=== PATIENT | female | born 1990 | race Caucasian/White ===

== ENCOUNTER 2016-09-07 08:27 | Inpatient (IN) | payer BC, OTHER ==
[2016-09-07] VITALS (7 sets, daily range): BP systolic 110–131; BP diastolic 64–85; PULSE 82–97; RESP 16–20; TEMP 97.4–98.6; O2SAT 96–99
[~2016-09-07] VITALS: Ht 177.8 cm; Wt 87.4 kg
[~2016-09-07 08:27] MED LIST: LOESTRIN; NOVOLOGP2
[2016-09-07 08:47] LABS: I-STAT POTASSIUM 3.9 MMOL/L (3.5-4.9); I-STAT SODIUM 139 MMOL/L (138-146)
[2016-09-07 08:52] LABS: AUTOMATED NEUTROPHIL # 5.7 TH/MM3 (1.8-7.7); BASOPHIL # 0.1 TH/MM3 (0-0.2); EOSINOPHIL # 0.1 TH/MM3 (0-0.4); EOSINOPHIL % 0.7 % (0.0-4.0); HEMATOCRIT 36.5 % (35.0-46.0); HEMO FLAGS DIFF FINAL; LYMPHOCYTE # 2.5 TH/MM3 (1.0-4.8); MEAN CORPUSCULAR HEMOGLOBIN 29.4 PG (27.0-34.0); MEAN CORPUSCULAR HGB CONC 34.6 % (32.0-36.0); MONO % 5.1 % (0.0-8.0); NEUT % 65.2 % (16.0-70.0); PLATELET COUNT 327 TH/MM3 (150-450); RED CELL DISTRIBUTION WIDTH 13.3 % (11.6-17.2); WHITE BLOOD COUNT 8.8 TH/MM3 (4.0-11.0)
--- NOTE | 2016-09-07 08:53 | RADRPT ---
EXAM DATE/TIME: 09/07/2016 08:26 [facility] COMPARISON: No previous studies available for comparison. INDICATIONS : Trauma Alert MEDICAL HISTORY : Unobtainable SURGICAL HISTORY : Unobtainable ENCOUNTER: Initial ACUITY: 1 day PAIN SCORE: Non-responsive. LOCATION: Bilateral pelvis FINDINGS: A single frontal view of the pelvis demonstrates no evidence of fracture. The bony pelvic ring is in tact. Bony mineralization is normal. The soft tissues are intact. CONCLUSION: No acute fracture. Fortunato Toney MD on September 07, 2016 at 8:48 Board Certified Radiologist. This report was verified electronically.
--- NOTE | 2016-09-07 08:56 | RADRPT ---
EXAM DATE/TIME: 09/07/2016 08:46 [facility] COMPARISON: No previous studies available for comparison. INDICATIONS : Trauma alert. Fall. Altered mental status. RADIATION DOSE: 32.59 CTDIvol (mGy) MEDICAL HISTORY : Non-responsive. SURGICAL HISTORY : Non-responsive. ENCOUNTER: Initial ACUITY: 1 day PAIN SCALE: Non-responsive LOCATION: cranial TECHNIQUE: Multiple contiguous axial images were obtained of the head. Using automated exposure control and adj ustment of the mA and/or kV according to patient size, radiation dose was kept as low as reasonably a chievable to obtain optimal diagnostic quality images. FINDINGS: CEREBRUM: The ventricles are normal for age. No evidence of midline shift, mass lesion, hemorrhage or acute in farction. No extra-axial fluid collections are seen. POSTERIOR FOSSA: The cerebellum and brainstem are intact. The 4th ventricle is midline. The cerebellopontine angle i s unremarkable. EXTRACRANIAL: The visualized portion of the orbits is intact. SKULL: The calvaria is intact. No evidence of skull fracture. CONCLUSION: No acute intracranial disease. Fortunato Toney MD on September 07, 2016 at 8:54 Board Certified Radiologist. This report was verified electronically.
--- NOTE | 2016-09-07 08:56 | RADRPT ---
EXAM DATE/TIME: 09/07/2016 08:26 [facility] COMPARISON: No previous studies available for comparison. INDICATIONS : Trauma Alert MEDICAL HISTORY : Unobtainable SURGICAL HISTORY : Unobtainable ENCOUNTER: Initial ACUITY: 1 day PAIN SCORE: Non-responsive. LOCATION: Bilateral chest FINDINGS: Patient on backboard. A single view of the chest demonstrates the lungs to be symmetrically aerated w ithout evidence of mass, infiltrate or effusion. The cardiomediastinal contours are unremarkable. O sseous structures are intact. CONCLUSION: No acute disease. Fortunato Toney MD on September 07, 2016 at 8:52 Board Certified Radiologist. This report was verified electronically.
[2016-09-07] MEDS ORDERED: levETIRAcetam 1000 MG INJ 100 ML IV ONE (09:00)
[2016-09-07 09:02] LABS: APTT (PATIENT) 25.8 SEC (24.3-30.1); INTERNATIONAL NORMALIZED RATIO 0.9 RATIO; PROTHROMBIN TIME - PATIENT 10.1 SEC (9.8-11.6)
[2016-09-07] MEDS ORDERED: LACTATED RINGER'S 1000 ML INJ 1,000 ML IV SCH (09:05)
--- NOTE | 2016-09-07 09:07 | RADRPT ---
EXAM DATE/TIME: 09/07/2016 08:46 [facility] COMPARISON: No previous studies available for comparison. INDICATIONS : Trauma alert. Fall. Altered mental status. RADIATION DOSE: 21.08 CTDIvol (mGy) MEDICAL HISTORY : Non-responsive. SURGICAL HISTORY : Non-responsive. ENCOUNTER: Initial ACUITY: 1 day PAIN SCALE: Non-responsive LOCATION: neck TECHNIQUE: Volumetric scanning of the cervical spine was performed. Multiplanar reconstructions in the sagittal, coronal and oblique axial planes were performed. Using automated exposure control and adjustment o f the mA and/or kV according to patient size, radiation dose was kept as low as reasonably achievable to obtain optimal diagnostic quality images. FINDINGS: VERTEBRAE: Normal vertebral body height. No fracture. This isn't maintained. ALIGNMENT: No evidence of subluxation. Facets are well aligned. Craniocervical junction intact. C2-C3: The bony spinal canal is normal in size. No evidence of disc bulge or herniation. The neural forami na are bilaterally patent. C3-C4: The bony spinal canal is normal in size. No evidence of disc bulge or herniation. The neural forami na are bilaterally patent. C4-C5: The bony spinal canal is normal in size. No evidence of disc bulge or herniation. The neural forami na are bilaterally patent. C5-C6: The bony spinal canal is normal in size. No evidence of disc bulge or herniation. The neural forami na are bilaterally patent. C6-C7: The bony spinal canal is normal in size. No evidence of disc bulge or herniation. The neural forami na are bilaterally patent. C7-T1: The bony spinal canal is normal in size. No evidence of disc bulge or herniation. The neural forami na are bilaterally patent. CONCLUSION: 1. No fracture or subluxation. Fortunato Toney MD on September 07, 2016 at 9:04 Board Certified Radiologist. This report was verified electronically.
[2016-09-07 09:08] LABS: BETA HCG QUANT LESS THAN 1 MIU/ML (0-5)
[2016-09-07] MEDS ORDERED: METOCLOPRAMIDE HCL 10 MG/2 ML VIAL IV PUSH ONE (09:15)
[2016-09-07] MEDS ORDERED: SODIUM CHLORIDE 0.9% FLUSH 5 ML FLUSH IVF PRN (09:15)
[2016-09-07] MEDS ORDERED: MISCELLANEOUS NURSING INFORMATION XX SCH (09:15)
[2016-09-07] MEDS ORDERED: CHLORHEXIDINE GLUCONATE 2 % 1 PACK (2 CLOTHS) TOP PRN (09:15)
--- NOTE | 2016-09-07 09:24 | HHI.HP ---
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 There is reported seizure activity at the scene and she was brought in as a trauma alert. Patient arrived alert and oriented, visibly shaken but in no real acute distress. She had no external signs of traumatic injury. He is a diabetic and said she forgot to take her insulin this morning, and she has no history of seizure activity in the past. In the trauma bay during the workup she said ever everything is getting dark and she became unresponsive. She maintained her airway and woke up after approximately a minute. Review of Systems Constitutional: DENIES: Diaphoretic episodes, Fatigue, Fever, Weight gain, Weight loss, Chills, Dizziness, Change in appetite, Night Sweats Endocrine: DENIES: Abnorml menstrual pattern, Heat/cold intolerance, Polydipsia , Polyuria, Polyphagia Eyes: DENIES: Blurred vision, Diplopia, Eye inflammation, Eye pain, Vision loss , Photosensitivity, Double Vision Ears, nose, mouth, throat: DENIES: Tinnitus, Hearing loss, Vertigo, Nasal discharge, Oral lesions, Throat pain, Hoarseness, Ear Pain, Running Nose, Epistaxis, Sinus Pain, Toothache, Odynophagia Respiratory: DENIES: Apneas, Cough, Snoring, Wheezing, Hemoptysis, Sputum production, Shortness of breath Cardiovascular: DENIES: Chest pain, Palpitations, Syncope, Dyspnea on Exertion , PND, Lower Extremity Edema, Orthopnea, Claudication Gastrointestinal: DENIES: Abdominal pain, Black stools, Bloody stools, Constipation, Diarrhea, Nausea, Vomiting, Difficulty Swallowing, Anorexia Genitourinary: DENIES: Abnormal vaginal bleeding, Dysmenorrhea, Dyspareunia, Sexual dysfunction, Urinary frequency, Urinary incontinence, Urgency, Hematuria , Dysuria, Nocturia, Vaginal discharge Musculoskeletal: DENIES: Joint pain, Muscle aches, Stiffness, Joint Swelling, Back pain, Neck pain Integumentary: DENIES: Abnormal pigmentation, Pruritus, Rash, Nail changes, Breast masses, Breast skin changes, Nipple discharge Hematologic/lymphatic: DENIES: Bruising, Lymphadenopathy Immunologic/allergic: DENIES: Eczema, Urticaria Neurologic: DENIES: Abnormal gait, Headache, Localized weakness, Paresthesias, Seizures, Speech Problems, Tremor, Poor Balance Psychiatric: DENIES: Anxiety, Confusion, Mood changes, Depression, Hallucinations, Agitation, Suicidal Ideation, Homicidal Ideation, Delusions Past Family Social History Allergies: Coded Allergies: Phenergan (Verified Allergy, Unknown, 09/07/16) Past Medical History Type 1 diabetes Cardiac dysrhythmias Past Surgical History Laparoscopic cholecystectomy [place] teeth removal Reported Medications Novolin insulin, sliding scale Family History Review and not relevant Social History Denies alcohol tobacco or drug use Physical Exam Physical Exam General: A 27-year-old female lying in no acute distress, visibly upset however Head: Atraumatic normocephalic Eyes: Pupils equal round reactive to light extraocular movements intact sclerae nonicteric conjunctiva was pink ENT: There is no facial tenderness or crepitus to palpation Neck: Soft, trachea is midline there is no tenderness to palpation Cardiovascular: Regular rate and rhythm Respiratory: Clear to auscultation bilaterally Chest: No tenderness or crepitus to palpation Abdomen: Soft nontender nondistended mildly obese Pelvis: Stable, nontender to palpation femoral pulses palpable bilaterally Back: No tenderness or step-off to palpation Extremities: No clubbing cyanosis or edema dorsalis pedis pulses palpable bilaterally Skin: Warm dry, no obvious signs of injury, herpetic rash present Psychiatric: Mood and affect are appropriate Neurologic: Cranial nerves II through XII appear grossly intact, there is no focal neurologic deficit Laboratory Laboratory Tests Test 09/07/16 08:30 White Blood Count 8.8 Red Blood Count 4.30 Hemoglobin 12.6 Bedside Hemoglobin 12.2 Hematocrit 36.5 Bedside Hematocrit 36.0 Mean Corpuscular Volume 85.0 Mean Corpuscular Hemoglobin 29.4 Mean Corpuscular Hemoglobin 34.6 Concent Red Cell Distribution Width 13.3 Platelet Count 327 Mean Platelet Volume 7.8 Neutrophils (%) (Auto) 65.2 Lymphocytes (%) (Auto) 28.0 Monocytes (%) (Auto) 5.1 Eosinophils (%) (Auto) 0.7 Basophils (%) (Auto) 1.0 Neutrophils # (Auto) 5.7 Lymphocytes # (Auto) 2.5 Monocytes # (Auto) 0.5 Eosinophils # (Auto) 0.1 Basophils # (Auto) 0.1 CBC Comment DIFF FINAL Differential Comment Prothrombin Time 10.1 Prothromb Time International 0.9 Ratio Activated Partial 25.8 Thromboplast Time Bedside Sodium 139 Bedside Potassium 3.9 Bedside Chloride 99 Bedside Blood Urea Nitrogen 7 Bedside Creatinine 0.5 Bedside Glucose 359 Human Chorionic Gonadotropin, LESS THAN 1 Quant Ethyl Alcohol Level LESS THAN 3 Blood Type O POSITIVE Result Diagram: 09/07/16829 Imaging Last Impressions Pelvis X-Ray 09/07/16836 Signed Impressions: Service Date/Time: Wednesday, September 07, 2016 08:26 - CONCLUSION: No acute fracture. Fortunato Toney MD Head CT 09/07/16836 Signed Impressions: Service Date/Time: Wednesday, September 07, 2016 08:46 - CONCLUSION: No acute intracranial disease. Fortunato Toney MD Chest X-Ray 09/07/16836 Signed Impressions: Service Date/Time: Wednesday, September 07, 2016 08:26 - CONCLUSION: No acute disease. Fortunato Toney MD Assessment and Plan Assessment and Plan Seizure activity following a blow to the head, following a trip and fall. -Admit to trauma service for serial neurologic exams and continuous hemodynamic monitoring -Loaded with Keppra 1000 mg IV followed by 500 mg by mouth twice a day -Neurology consult Type 1 diabetes -Nothing by mouth for now, 1800-calorie ADA diet when appropriate -Will place on insulin sliding scale with before meals and at bedtime coverage Code Status Full code Discussed Condition With Patient, ED physician, trauma team Leonel Coreas MD Sep 07, 2016 09:24
[2016-09-07] MEDS ORDERED: GLUCAGON 1 MG/ML VIAL OTHER PRN (09:30)
[2016-09-07] MEDS ORDERED: DEXTROSE 50% IN WATER 50 ML VIAL(D50) IV PUSH PRN ×2 (09:30→11:30)
--- NOTE | 2016-09-07 09:37 | PD ---
HPI Chief Complaint: Trauma (Alert) Time Seen by Provider: 08:28 Travel History International Travel<30 days: No Contact w/Intl Traveler<30days: No Traveled to known affect area: No History of Present Illness HPI Patient is a 26-year-old female who was brought to the emergency room by EMS after a trauma alert was initiated on her in the field. GCS was 11 in the field. Blood pressure was 152/78, respiratory rate was 14 and pulse ox was 100 % on room air. 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 Reports that patient tripped and fell over a stump on the ground and hit her head on the ground. Reports that after she fell, she had loss of consciousness and what appeared to be 2 episodes of petit mal seizures. Reports that these episodes lasted for a few seconds at a time. Patient with no history of seizures in the past. Reports that on scene, patient's GCS was 11. Reports that she was alert and oriented to person and place but was confused and was having problems with word findings. Patient is a type I diabetic on a sliding scale insulin - patient reports that she did not take her insulin today as she forgot. Which sugar in the emergency room was 359 in ER. Patient is awake and alert 3 in the emergency room. Patient with only complaints of headache and problems with word finding. Patient does remember events prior to tripping and falling. Patient reports that she is a type I diabetic, reports that she forgot to take her medications today. Reports that she tripped and fell and hit her head and doesn't remember anything else after this. Patient reports that she does have herpetic lesions in her left buttocks. Patient with no chest pain or shortness of breath. Patient with no abdominal pain. Patient with no pain with range of motion to her extremities. [facility] Past Medical History Diabetes: Yes Past Surgical History Cholecystectomy: Yes Other Surgery: Yes ([place] tooth surgery) Family History Family History: Negative Social History Alcohol Use: No Tobacco Use: No Substance Use: No Allergies-Medications (Allergen,Severity, Reaction): Coded Allergies: Phenergan (Verified Allergy, Unknown, 09/07/16) Review of Systems General / Constitutional: No: Fever Eyes: No: Visual changes HENT: No: Headaches Cardiovascular: No: Chest Pain or Discomfort Respiratory: No: Shortness of Breath Gastrointestinal: No: Abdominal Pain Genitourinary: No: Dysuria Musculoskeletal: No: Pain Skin: No Rash Neurologic: Positive: Headache, Change in Mentation, No: Weakness Psychiatric: No: Depression Endocrine: No: Polydipsia Hematologic/Lymphatic: No: Easy Bruising Physical Exam Narrative GENERAL: moderate distress SKIN: Warm and dry. HEAD: Atraumatic. Normocephalic. EYES: Pupils equal and round. No scleral icterus. No injection or drainage. pupils are 2 and reactive ENT: No nasal bleeding or discharge. Mucous membranes pink and moist. NECK: Trachea midline. No JVD. Patient in C-spine precautions CARDIOVASCULAR: Regular rate and rhythm. No murmur appreciated. RESPIRATORY: No accessory muscle use. Clear to auscultation. Breath sounds equal bilaterally. GASTROINTESTINAL: Abdomen soft, non-tender, nondistended. Hepatic and splenic margins not palpable. MUSCULOSKELETAL: No obvious deformities. No clubbing. No cyanosis. No edema. Patient with no midline tenderness NEUROLOGICAL: Awake and alert. No obvious cranial nerve deficits. Motor grossly within normal limits. Normal speech. PSYCHIATRIC: Anxious on exam Data Data Last Documented VS Vital Signs Date Time Temp Pulse Resp B/P Pulse Ox O2 Delivery O2 Flow Rate FiO2 09/07/16 09:05 99 Nasal Cannula 2 09/07/16 09:05 97.4 97 16 127/73 Orders I-Stat Profile (09/07/16 08:37) I-Stat Creatinine (09/07/16 08:37) Complete Blood Count With Diff (09/07/16 08:37) Prothrombin Time / Inr (Pt) (09/07/16 08:37) Act Partial Throm Time (Ptt) (09/07/16 08:37) Type And Screen (09/07/16 08:37) Alcohol (Ethanol) (09/07/16 08:37) Beta Hcg (Quant/Titer) (09/07/16 08:37) Urinalysis - C+S If Indicated (09/07/16 08:37) Drug Screen, Random Urine (09/07/16 08:37) Chest, Single Ap (09/07/16 08:37) Pelvis, Ap Only (Routine) (09/07/16 08:37) Ct Brain W/O Iv Contrast(Rout) (09/07/16 08:37) Ct Cerv Spine W/O Contrast (09/07/16 08:37) Iv Access Insert/Monitor (09/07/16 08:37) Ecg Monitoring (09/07/16 08:37) Oximetry (09/07/16 08:37) Oxygen Administration (09/07/16 08:37) Electrocardiogram (09/07/16 ) Levetiracetam 1000 Mg Inj (Keppra 1000 M (09/07/16 09:00) Metoclopramide Inj (Reglan Inj) (09/07/16 09:15) Levetiracetam (Keppra) (09/07/16 21:00) Admit To Inpatient (09/07/16 ) Vital Signs (Adult) URIEL.QSHIFT (09/07/16 09:05) Intake + Output URIEL.Q8H (09/07/16 09:05) Neuro Checks URIEL.Q1H (09/07/16 09:05) Activity Bed Rest (09/07/16 09:05) Diet Npo (09/07/16 Breakfast) Scd / El / Foot Pump URIEL.QSHIFT (09/07/16 09:05) ^ Instruction (09/07/16 09:05) Lactated Ringer's 1000 Ml Inj (Lr 1000 M (09/07/16 09:05) Sodium Chloride 0.9% Flush (Ns Flush) (09/07/16 09:15) Acetamin-Hydrocod 325-5 Mg ([place] 5-325 (09/07/16 09:15) Acetaminophen (Tylenol) (09/07/16 10:00) ^ Initiate Protocol (09/07/16 09:05) ^ Instruction (09/07/16 09:05) [facility] [place] (09/07/16 09:15) Chlorhexidine 2% Cloth (Chlorhexidine 2% (09/08/16 04:00) Chlorhexidine 2% Cloth (Chlorhexidine 2% (09/07/16 09:15) [facility] Pcr Surveillance (09/07/16 09:05) Inpatient Certification (09/07/16 ) Intake + Output URIEL.Q8H (09/07/16 09:05) ^ Instruction (09/07/16 09:05) Consult Neurology (09/07/16 ) Remove Cervical Collar (09/07/16 09:12) Labs Laboratory Tests Test 09/07/16 08:30 White Blood Count 8.8 TH/MM3 Red Blood Count 4.30 MIL/MM3 Hemoglobin 12.6 GM/DL Bedside Hemoglobin 12.2 G/DL Hematocrit 36.5 % Bedside Hematocrit 36.0 % Mean Corpuscular Volume 85.0 FL Mean Corpuscular Hemoglobin 29.4 PG Mean Corpuscular Hemoglobin 34.6 % Concent Red Cell Distribution Width 13.3 % Platelet Count 327 TH/MM3 Mean Platelet Volume 7.8 FL Neutrophils (%) (Auto) 65.2 % Lymphocytes (%) (Auto) 28.0 % Monocytes (%) (Auto) 5.1 % Eosinophils (%) (Auto) 0.7 % Basophils (%) (Auto) 1.0 % Neutrophils # (Auto) 5.7 TH/MM3 Lymphocytes # (Auto) 2.5 TH/MM3 Monocytes # (Auto) 0.5 TH/MM3 Eosinophils # (Auto) 0.1 TH/MM3 Basophils # (Auto) 0.1 TH/MM3 CBC Comment DIFF FINAL Differential Comment Prothrombin Time 10.1 SEC Prothromb Time International 0.9 RATIO Ratio Activated Partial 25.8 SEC Thromboplast Time Bedside Sodium 139 MMOL/L Bedside Potassium 3.9 MMOL/L Bedside Chloride 99 MMOL/L Bedside Blood Urea Nitrogen 7 MG/DL Bedside Creatinine 0.5 MG/DL Bedside Glucose 359 MG/DL Human Chorionic Gonadotropin, LESS THAN 1 Quant MIU/ML Ethyl Alcohol Level LESS THAN 3 MG/DL Blood Type O POSITIVE [facility] Medical Screen Exam Complete: Yes Emergency Medical Condition: Yes Interpretation(s) EKG at 0910: Normal sinus rhythm at 94 bpm, QT/QTc 351/403, no acute ST or T- wave changes CBC & BMP Diagram 09/07/16 08:30 Last Impressions Pelvis X-Ray 09/07/16836 Signed Impressions: Service Date/Time: Wednesday, September 07, 2016 08:26 - CONCLUSION: No acute fracture. Fortunato Toney MD Head CT 09/07/16836 Signed Impressions: Service Date/Time: Wednesday, September 07, 2016 08:46 - CONCLUSION: No acute intracranial disease. Fortunato Toney MD Chest X-Ray 09/07/16836 Signed Impressions: Service Date/Time: Wednesday, September 07, 2016 08:26 - CONCLUSION: No acute disease. Fortunato Toney MD Cervical Spine CT 09/07/16 0837 Signed Impressions: Service Date/Time: Wednesday, September 07, 2016 08:46 - CONCLUSION: 1. No fracture or subluxation. Fortunato Toney MD Differential Diagnosis Intracranial hemorrhage, seizure, electrolyte abnormality, arrhythmia, C-spine fracture, pneumothorax Narrative Course Patient is a 26-year-old female with history of type 1 diabetes on an insulin sliding scale who presents to emergency room by EMS as a trauma alert. Patient' s GCS was 11 on scene. Trauma alert was called overhead. Upon arrival to emergency room, patient was alert and oriented 3. Trauma protocol initiated. Dr Coreas at beside during trauma alert and workup of patient Please see trauma records. Patient presents to emergency room alert and oriented 3. Patient had good breath sounds on evaluation. Patient has good pulses on evaluation was moving all extremities. There was no obvious bruising on her body. I-STAT labs were obtained. X-ray of the chest and as well as the pelvis were ordered and obtained which showed no acute fractures. Patient was removed from long board, patient with no midline tenderness on evaluation. During her evaluation, patient became unresponsive for a few seconds and then was alert and oriented 3. Keppra load was ordered for her as concern for seizure activity. After primary and secondary trauma evaluation, patient was stable to go for CAT scans of her head and neck. Patient with no obvious bleed or no obvious fracture to her C-spine. Patient will be admitted to the surgical ICU for close monitoring. Critical Care Narrative Aggregate critical care time was 45 minutes. Time to perform other separately billable procedures was not included in the critical care time. My time did not include minutes spent treating any other patients simultaneously or on activities that did not directly contribute to the patient's treatment. The services I provided to this patient were to treat and/or prevent clinically significant deterioration that could result in: , decompensation, deterioration I provided critical care services requiring my management, as noted below: Chart data review, documentation time, medication orders and management, vital sign assessments/reviewing monitor data, ordering and reviewing lab tests, ordering and interpreting/reviewing x-rays and diagnostic studies, care of the patient and discussion of the patient with the admitting physicians. Trauma Alert - Level One Trauma Alert Level One: Full trauma team activate Time Surgeon Summoned: 08:11 Time Anesthesiologist Summoned: 08:23 Diagnosis Diagnosis: Primary Impression: Trauma Additional Impression: Seizure after head injury Admitting Physician Requests: Admit Azeb Mayberry DO Sep 07, 2016 09:37
[2016-09-07] MEDS ORDERED: MORPHINE SULFATE 4 MG/ML INJ IV PUSH ONE (10:00)
[2016-09-07] MEDS ORDERED: ACETAMINOPHEN 325 MG TAB PO PRN (10:00)
[2016-09-07 10:52] LABS: BACTERIA, URINE RARE /hpf; BLOOD, URINE TRACE (NEG); GLUCOSE,URINE 1000 mg/dL (NEG); KETONE, URINE 80 mg/dL (NEG); MUCUS URINE FEW /lpf (OCC); NITRITE,URINE NEG (NEG); PH, URINE 6.5 (5.0-8.5); SQUAMOUS EPITHELIAL CELL URINE 2 /hpf (0-5); URINE COLOR LIGHT-YELLOW (YELLW/STRAW)
[2016-09-07 10:56] LABS: AMPHETAMINE, URINE NEG (NEG); BARBITURATES, URINE NEG (NEG); COCAINE, URINE NEG (NEG); COMMENT (UR) CULT NOT INDICATED; CULTURE IF INDICATED CULT NOT INDICATED
--- NOTE | 2016-09-07 11:28 | PD.CONS ---
HPI Service Critical Care Medicine Consult Requested By Trauma, Dr. 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 Reported seizure activity at the scene and she was brought in as a trauma alert. Patient arrived alert and oriented, no external signs of traumatic injury. Last dose of insulin was at 4 am per patient, and she has no history of seizure activity in the past. In the trauma bay the patient stated everything is getting dark and she became unresponsive. She woke up after approximately after a minute, and was protecting airway CT of the head and C-spine was negative. Initial blood sugar was 359. Patient was admitted to ICU and critical care was consulted for medical management of hyperglycemia and type 1 diabetes, also for seizures following closed head injury. Patient states that she never had seizures before. Also she usually gets palpitations with SVT, did not feel chest pain or palpitation prior to this episode Review of Systems ROS Limitations: Other (per HPI) Past Family Social History Allergies: Coded Allergies: Phenergan (Verified Allergy, Unknown, 09/07/16) Past Medical History Type 1 diabetes on insulin (now on Carb count with SSI) SVT Past Surgical History Appendectomy [place] tooth removal Reported Medications Metoprolol Insulin sliding scale Active Ordered Medications Reviewed Family History Significant history of coronary artery disease Social History No tobacco use and no drug use Occasional social alcohol use Physical Exam Vital Signs Vital Signs Date Time Temp Pulse Resp B/P Pulse Ox O2 Delivery O2 Flow Rate FiO2 09/07/16 09:05 99 Nasal Cannula 2 09/07/16 09:05 97.4 97 16 127/73 99 Nasal Cannula 2 Physical Exam General: A 26-year-old female lying in no acute distress, Head: Atraumatic normocephalic, mild posterior scalp tenderness over the occiput Eyes: Pupils equal round reactive to light extraocular movements intact sclerae ENT: There is no facial tenderness Neck: Soft, trachea is midline there is no tenderness to palpation Cardiovascular: Regular rate and rhythm, no murmurs. Bedside Echo Nl EF, no evidence of MVP, or atrial clot on limited exam Respiratory: Clear to auscultation bilaterally Chest: No tenderness or crepitus to palpation Abdomen: Soft nontender nondistended. No organomegaly Extremities: No clubbing cyanosis or edema dorsalis pedis pulses palpable bilaterally Neurologic: Cranial nerves II through XII appear grossly intact, there is no focal neurologic deficit Laboratory Laboratory Tests Test 09/07/16 09/07/16 08:30 10:15 White Blood Count 8.8 Red Blood Count 4.30 Hemoglobin 12.6 Bedside Hemoglobin 12.2 Hematocrit 36.5 Bedside Hematocrit 36.0 Mean Corpuscular Volume 85.0 Mean Corpuscular Hemoglobin 29.4 Mean Corpuscular Hemoglobin 34.6 Concent Red Cell Distribution Width 13.3 Platelet Count 327 Mean Platelet Volume 7.8 Neutrophils (%) (Auto) 65.2 Lymphocytes (%) (Auto) 28.0 Monocytes (%) (Auto) 5.1 Eosinophils (%) (Auto) 0.7 Basophils (%) (Auto) 1.0 Neutrophils # (Auto) 5.7 Lymphocytes # (Auto) 2.5 Monocytes # (Auto) 0.5 Eosinophils # (Auto) 0.1 Basophils # (Auto) 0.1 CBC Comment DIFF FINAL Differential Comment Prothrombin Time 10.1 Prothromb Time International 0.9 Ratio Activated Partial 25.8 Thromboplast Time Bedside Sodium 139 Bedside Potassium 3.9 Bedside Chloride 99 Bedside Blood Urea Nitrogen 7 Bedside Creatinine 0.5 Bedside Glucose 359 Human Chorionic Gonadotropin, LESS THAN 1 Quant Ethyl Alcohol Level LESS THAN 3 Blood Type O POSITIVE Antibody Screen NEGATIVE Urine Color LIGHT-YELLOW Urine Turbidity CLEAR Urine pH 6.5 Urine Specific [place] 1.026 Urine Protein NEG Urine Glucose (UA) 1000 Urine Ketones 80 Urine Occult Blood TRACE Urine Nitrite NEG Urine Bilirubin NEG Urine Urobilinogen LESS THAN 2.0 Urine Leukocyte Esterase LARGE Urine RBC 1 Urine WBC 6 Urine Squamous Epithelial 2 Cells Urine Bacteria RARE Urine Mucus FEW Urine Yeast (Budding) RARE Microscopic Urinalysis Comment CULT NOT INDICATED Urine Opiates Screen NEG Urine Barbiturates Screen NEG Urine Amphetamines Screen NEG Urine Benzodiazepines Screen POS Urine Cocaine Screen NEG Urine Cannabinoids Screen NEG Result Diagram: 09/07/[address] head cervical spine negative Assessment and Plan Assessment and Plan ASSESSMENT: Mechanical fall with Closed head injury without bleed Syncope at trauma bay Seizure Hyperglycemia Type 1 diabetes History of SVT PLAN: NEURO: Closed head injury Seizure Syncope -CT of the head and C-spine negative -Loaded with Keppra get stat EEG, neurology consult -IV Ativan when necessary for seizures RESP: -Nasal cannula oxygen, DuoNeb if needed CV: History of SVT -Normal saline IV fluids 150 ml per hour, repeat 2d echo. -This incident does not seem to be cardiac related -Resume beta blockers -Bedside Echo Nl EF, no evidence of MVP, or atrial clot on limited exam GI: -1800 ADA diet : -Monitor renal function closely. ID: -Monitor for infection HEME: -Monitor CBC, CMP, coags ENDO: Hyperglycemia Type 1 diabetes -Check CMP, no evidence of DKA at this time -Critical care insulin infusion algorithm 2 -Transition to sliding scale once sugars controlled -Electrolyte replacement protocol PROPH: -Bilateral lower extremity SCDs. Avoid chemical prophylaxis due to acute trauma. Protonix 40 mg by mouth daily LINES: -Utilize peripheral IVs, central line if needed CC time 40 min Code Status Full Benji Theodore MD Sep 07, 2016 11:28
[2016-09-07] MEDS ORDERED: MISC INFORMATION XX ONE (11:30)
[2016-09-07] MEDS ORDERED: LORazepam 2 MG/ML VIAL IV PUSH PRN (11:30)
[2016-09-07] MEDS: SODIUM CHLOR 0.9% 1000 ML INJ 1,000 ML IV SCH ×2 (11:45→18:49)
[2016-09-07] MEDS ORDERED: SODIUM PHOSPHATE INJ 30 MMOL in SODIUM CHLOR 0.9% 250 ML INJ 240 ML IV PRN (12:00)
[2016-09-07] MEDS ORDERED: POTASSIUM CHLOR 40 MEQ PREMIX 100 ML IV PRN ×2 (12:00)
[2016-09-07] MEDS ORDERED: POTASSIUM CL 40 MEQ/30 ML LIQ UDC PO/TUBE PRN ×2 (12:00)
[2016-09-07] MEDS ORDERED: POTASSIUM CHLOR 20 MEQ PREMIX 100 ML IV PRN ×2 (12:00)
[2016-09-07] MEDS ORDERED: MAGNESIUM OXIDE 400 MG TAB PO PRN (12:00)
[2016-09-07] MEDS ORDERED: POTASSIUM PHOSPHATE INJ 30 MMOL in SODIUM CHLOR 0.9% 250 ML INJ 250 ML IV PRN (12:00)
[2016-09-07] MEDS ORDERED: MAGNESIUM SULFATE INJ 2 GM in SODIUM CHLORIDE 0.9% INJ 96 ML IV PRN (12:00)
[2016-09-07] MEDS ORDERED: POTASSIUM PHOSPHATE MONOBASIC 500 MG TAB PO PRN (12:00)
[2016-09-07] MEDS ORDERED: POTASSIUM PHOSPHATE MONOBASIC 500 MG TAB PO/TUBE PRN (12:00)
[2016-09-07] MEDS ORDERED: MAGNESIUM SULFATE INJ 4 GM in SODIUM CHLORIDE 0.9% INJ 92 ML IV PRN (12:00)
[2016-09-07 12:19] LABS: ALKALINE PHOSPHATASE 120 U/L (45-117); ALT (GPT) 14 U/L (10-53); ANION GAP 11 MEQ/L (5-15); AST (GOT) 13 U/L (15-37); BICARBONATE 25.9 MEQ/L (21.0-32.0); BLOOD UREA NITROGEN 8 MG/DL (7-18); CHLORIDE 103 MEQ/L (98-107); GLOMERULAR FILTRATION RATE 75 ML/MIN (>89); POTASSIUM 3.9 MEQ/L (3.5-5.1); SODIUM (NA) 140 MEQ/L (136-145); TOTAL BILIRUBIN ADULT 0.2 MG/DL (0.2-1.0)
[2016-09-07] MEDS ORDERED: INSULIN REGULAR (IV INFUSION) 100 UNITS in SODIUM CHLORIDE 0.9% INJ 99 ML IV SCH (13:00)
--- NOTE | 2016-09-07 13:43 | MB ---
cc: AGUSTO MCKINLEY MD DATE OF CONSULTATION: 09/07/2016 REASON FOR CONSULTATION: Trip and fall / seizures. 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 There was reported seizure activity at the scene and she was brought in to the [facility] as trauma alert. The patient was witnessed to have, "a petit mal seizure". The patient when arrived was alert and oriented and she had no external signs of any trauma. The patient states that the last thing she recalls is when she tripped and fell and "walking through the yard when I tripped and fell". She denies any tongue biting, foaming, but according to some witnesses, there was mild foam. She denies any history of loss of bowel or bladder control. The patient is diabetic and insulin-dependent diagnosed when she was 14 and she forgot to take her insulin this morning. She denies any history of seizure activity in the past or any family member with seizure. However, the patient clearly mentioned that she was diagnosed with neurocardiogenic syncope by a loan servicing specialist when she had episodes of supraventricular tachycardia and where her heart rate could be as high as 190, she would feel dizzy, lightheaded, was pale, racing heart, profuse sweating and then she may zone out or pass out as she states but she never has a witnessed convulsion or seizure. Head CT scan in the emergency department without contrast did not reveal any acute intracranial disease. Labs revealed an elevated glucose of 359, positive urine for ketones. The patient is on insulin for diabetes and metoprolol for her supraventricular tachycardia. REVIEW OF SYSTEMS: A twelve-point review of systems was negative except as stated in the history of present illness. PAST MEDICAL HISTORY: 1. Diabetes. 2. Cardiac arrhythmias / supraventricular tachycardia. PAST SURGICAL HISTORY: 1. Laparoscopic cholecystectomy. 2. [place] teeth removal. MEDICATIONS: Sliding scale insulin. FAMILY HISTORY: Noncontributory. SOCIAL HISTORY: Denies alcohol, tobacco or drug abuse. ALLERGIES: PHENERGAN. PHYSICAL EXAMINATION: GENERAL: The patient is awake, alert, good historian, not in acute distress. HEAD, EYES, EARS, NOSE, THROAT: Normocephalic and atraumatic. Intact vision and intact hearing. CARDIOVASCULAR: Regular rate and rhythm. RESPIRATORY: Clear to auscultation. No wheezes. EXTREMITIES: No cyanosis, clubbing or edema. NEUROLOGICAL EXAMINATION: Awake, alert and oriented to time, person and place. Intact speech. Intact memory. Cranial nerves II through XII are grossly intact. Motor system 5/5 bilateral and symmetrical. Normal tone. No abnormal movement. Sensation is intact bilateral and symmetrical. Reflexes are 2+ bilateral and symmetrical. Plantars are bilaterally downgoing. Cerebellar functions [id number] and sitl-[id number] are bilaterally normal. PSYCHIATRIC: Mood and affect are appropriate. No suicidal ideation or visual hallucinations. LABORATORY DATA: WBCs 8.8, hemoglobin 12.6, platelet count 327,000. INR 0.9. Sodium 139, potassium 3.9, chloride 99, BUN 7, creatinine 0.5, glucose 359. DIAGNOSTIC IMAGING: -Head CT scan without contrast with no acute intracranial disease. - Pelvic x-rays show no acute fracture. - Chest x-ray shows no acute disease. DIAGNOSTIC IMPRESSION: 1. Seizure-like activity witnessed by paramedics. 2. History of neurocardiogenic syncope / supraventricular tachycardia. 3. Insulin-dependent diabetes. 4. Possible etiology is an episode of syncope with convulsions. PLAN: 1. Neuro checks q. 4 hourly. 2. MRI brain. 3. No need for AEDs' at this time. 4. Seizure precautions. 5. Fall precautions. 6. Physical therapy and occupational therapy recommendations are appreciated. 7. EEG. 8. DVT prophylaxis. Thank you for the opportunity to participate in the care of your patient. MD ANAYELI Bianchi/JOSEPH /11:08 AM /1:32 PM MIKEL
[2016-09-07] MEDS: INSULIN ASPART SUPPLEMENTAL SCALE SQ SCH ×2 (16:00→20:51)
[2016-09-07] MEDS ORDERED: ATROPINE SULFATE 1 MG/10 ML SYRINGE ONE (16:02)
[2016-09-07] MEDS ORDERED: EPINEPHrine HCL (1:10,000) 1 MG/10 ML SYRINGE ONE (16:02)
[2016-09-07] MEDS: ACETAMINOPHEN/HYDROcodone 325 MG/5 MG TAB PO PRN (17:07)
--- NOTE | 2016-09-07 18:05 | RADRPT ---
EXAM DATE/TIME: 09/07/2016 16:12 [facility] COMPARISON: No previous studies available for comparison. INDICATIONS : Seizures. MEDICAL HISTORY : Diabetes mellitus type 1. Cardo neurogenic syncope SURGICAL HISTORY : Cholecystectomy. ENCOUNTER: Initial ACUITY: 1 day PAIN SCORE: 0/10 LOCATION: cranial TECHNIQUE: Multiplanar, multisequence MRI of the brain was performed without contrast. FINDINGS: CEREBRUM: The ventricles are normal for age. No evidence of midline shift, mass lesion, hemorrhage or acute in farction. No extraaxial fluid collections are seen. The pituitary gland and suprasellar cistern are normal in configuration. WHITE MATTER: No significant signal abnormalities are seen in the white matter. POSTERIOR FOSSA: The cerebellum and brainstem are intact. The 4th ventricle is midline. The cerebellopontine angle is unremarkable. The cerebellar tonsils are normal in position. DIFFUSION IMAGING: No focal areas of restricted diffusion are seen. No evidence of acute infarction. EXTRACRANIAL: The visualized portions of the orbits and paranasal sinuses are unremarkable. CONCLUSION: Normal examination for a patient of this age. Rashad Mello MD on September 07, 2016 at 18:01 Board Certified Radiologist. This report was verified electronically.
--- NOTE | 2016-09-07 20:36 | RADRPT ---
EXAM DATE/TIME: 09/07/2016 20:14 [facility] COMPARISON: No previous studies available for comparison. INDICATIONS : Stroke alert; left sided weakness. RADIATION DOSE: 49.62 CTDIvol (mGy) This report was called by Dr. Mello to Dr. Zheng at 8: 34 PM MEDICAL HISTORY : None SURGICAL HISTORY : None. ENCOUNTER: Initial ACUITY: 1 day PAIN SCALE: 0/10 LOCATION: cranial TECHNIQUE: Multiple contiguous axial images were obtained of the head. Using automated exposure control and adj ustment of the mA and/or kV according to patient size, radiation dose was kept as low as reasonably a chievable to obtain optimal diagnostic quality images. FINDINGS: CEREBRUM: The ventricles are normal for age. No evidence of midline shift, mass lesion, hemorrhage or acute in farction. No extra-axial fluid collections are seen. POSTERIOR FOSSA: The cerebellum and brainstem are intact. The 4th ventricle is midline. The cerebellopontine angle i s unremarkable. EXTRACRANIAL: The visualized portion of the orbits is intact. SKULL: The calvaria is intact. No evidence of skull fracture. CONCLUSION: Normal examination. Rashad Mello MD on September 07, 2016 at 20:32 Board Certified Radiologist. This report was verified electronically.
[2016-09-07] MEDS: levETIRAcetam 500 MG TAB PO SCH (20:51)
[2016-09-07] MEDS ORDERED: INSULIN DETEMIR 100 UNITS/ML VIAL SQ SCH (21:00)
[2016-09-07 21:06] LABS: AUTOMATED NEUTROPHIL # 3.3 TH/MM3 (1.8-7.7); BASOPHIL # 0.1 TH/MM3 (0-0.2); BASOPHIL % 1.1 % (0.0-2.0); EOSINOPHIL # 0.1 TH/MM3 (0-0.4); EOSINOPHIL % 1.2 % (0.0-4.0); HEMATOCRIT 36.3 % (35.0-46.0); HEMO FLAGS DIFF FINAL; LYMPH % 42.7 % (9.0-44.0); LYMPHOCYTE # 2.9 TH/MM3 (1.0-4.8); MEAN CELL VOLUME 86.8 FL (80.0-100.0); MEAN CORPUSCULAR HEMOGLOBIN 29.2 PG (27.0-34.0); MEAN CORPUSCULAR HGB CONC 33.7 % (32.0-36.0); MONO % 5.4 % (0.0-8.0); NEUT % 49.6 % (16.0-70.0); PLATELET COUNT 306 TH/MM3 (150-450); RED BLOOD COUNT 4.19 MIL/MM3 (4.00-5.30); RED CELL DISTRIBUTION WIDTH 13.3 % (11.6-17.2); WHITE BLOOD COUNT 6.7 TH/MM3 (4.0-11.0)
[2016-09-07 21:15] LABS: APTT (PATIENT) 28.3 SEC (24.3-30.1); INTERNATIONAL NORMALIZED RATIO 0.9 RATIO; PROTHROMBIN TIME - PATIENT 10.4 SEC (9.8-11.6)
[2016-09-07 21:52] LABS: ALKALINE PHOSPHATASE 116 U/L (45-117); ALT (GPT) 17 U/L (10-53); ANION GAP 13 MEQ/L (5-15); AST (GOT) 17 U/L (15-37); BLOOD UREA NITROGEN 9 MG/DL (7-18); CHLORIDE 99 MEQ/L (98-107); GLOMERULAR FILTRATION RATE 103 ML/MIN (>89); POTASSIUM 5.3 MEQ/L (3.5-5.1); SODIUM (NA) 134 MEQ/L (136-145); TOTAL BILIRUBIN ADULT 0.5 MG/DL (0.2-1.0)
--- NOTE | 2016-09-07 23:48 | HHI.PR ---
Review/Management Diagnosis Seizure like activity Stroke alert, not iv tPA candidate due to rapid resolution of symptoms and NIHSS of Zero Insulin dependant diabetes mellitus Plan Neurochecks Q4h Aspirin 81 mg daily EEG pending MRA head CUS telemetry Cardiac ECHO Seizure precautions DVT prophylaxis Diagnosis/Plan: Subjective Subjective Comments Called for a stroke alert Left facial droop, left sided UE&LE drift NIHSS of [address] scan with no acute intracranial abnormality Reassessment of NIHHS after patient was back from CT scan was Zero Full resolution of symptoms Hence, not a candidate for IV tPA Active Medications Current Medications Medications (Trade) Dose Ordered Sig/Jami Route Start Time Stop Time Status Last Admin (Keppra) 500 mg Q12HR PO 09/07/16 21:00 09/07/16 20:51 (NS Flush) 2 ml UNSCH PRN IVF 09/07/16 09:15 ([place] 5-325 Mg) 1 tab Q4H PRN PO 09/07/16 09:15 09/07/16 17:07 (Tylenol) 650 mg Q6H PRN PO 09/07/16 10:00 Miscellaneous Information 1 [id number] XX 09/07/16 09:15 (Chlorhexidine 2% Cloth) 3 pack Taper DAILY@04 TOP 09/08/16 04:00 09/04/17 03:59 (Chlorhexidine 2% Cloth) 3 pack UNSCH PRN TOP 09/07/16 09:15 Lorazepam 1 mg 1 mg Q2H PRN IV PUSH 09/07/16 11:30 Sodium Chloride 1,000 ml @ 75 mls/hr [id number] IV 09/07/16 11:45 09/07/16 18:49 Potassium Chloride 100 ml @ 50 mls/hr Q2H PRN IV 09/07/16 12:00 (KCl 20 Meq Premix Inj) 100 ml @ 50 mls/hr Q2H PRN IV 09/07/16 12:00 Potassium Chloride 40 meq 40 meq UNSCH PRN PO/TUBE 09/07/16 12:00 Potassium Chloride 100 ml @ 25 mls/hr UNSCH PRN IV 09/07/16 12:00 Potassium Chloride 100 ml @ 50 mls/hr Q2H PRN IV 09/07/16 12:00 (Magnesium Sulfate Inj/NS Inj) 100 ml @ 50 mls/hr UNSCH PRN IV 09/07/16 12:00 Magnesium Oxide 800 mg 800 mg UNSCH PRN PO 09/07/16 12:00 (Magnesium Sulfate Inj/NS Inj) 100 ml @ 50 mls/hr UNSCH PRN IV 09/07/16 12:00 Potassium Phosphate 2000 mg 2,000 mg Q4H PRN PO 09/07/16 12:00 (Sodium Phosphate Inj/NS 250 ml Inj) 250 ml @ 42 mls/hr UNSCH PRN IV 09/07/16 12:00 (KCl 40 Meq/30 ml Liq) 40 meq UNSCH PRN PO/TUBE 09/07/16 12:00 Potassium Phosphate 2000 mg 2,000 mg UNSCH PRN PO/TUBE 09/07/16 12:00 (Potassium Phosphate Inj/NS 250 ml Inj) 260 ml @ 42 mls/hr UNSCH PRN IV 09/07/16 12:00 (Levemir Inj) 10 units HS SQ 09/07/16 21:00 09/07/16 20:52 Allergies Allergies Coded Allergies Phenergan (Verified Allergy, Unknown, 09/07/16) Exam I&O / VS Vital Signs Date Time Temp Pulse Resp B/P Pulse Ox O2 Delivery O2 Flow Rate FiO2 09/07/16 18:00 82 09/07/16 16:00 82 09/07/16 16:00 98.6 82 17 110/64 97 09/07/16 14:00 95 09/07/16 12:30 100 Room Air 09/07/16 09:05 99 Nasal Cannula 2 09/07/16 09:05 97.4 97 16 127/73 99 Nasal Cannula 2 09/07/16 08:27 98 4.00 Objective Radiology Results Last 72 hours Impressions Pelvis X-Ray [id number]/[id number] Signed Impressions: Service Date/Time: Wednesday, September 07, 2016 08:26 - CONCLUSION: No acute fracture. Fortunato Toney MD Head CT [id number] Signed Impressions: Service Date/Time: Wednesday, September 07, 2016 08:46 - CONCLUSION: No acute intracranial disease. Fortunato Toney MD Chest X-Ray [id number]/07/16836 Signed Impressions: Service Date/Time: Wednesday, September 07, 2016 08:26 - CONCLUSION: No acute disease. Fortunato Toney MD Cervical Spine CT 09/07/16 0837 Signed Impressions: Service Date/Time: Wednesday, September 07, 2016 08:46 - CONCLUSION: 1. No fracture or subluxation. Fortunato Toney MD Head CT 09/07/16 0000 Signed Impressions: Service Date/Time: Wednesday, September 07, 2016 20:14 - CONCLUSION: Normal examination. Rashad Mello MD Brain MRI 09/07/16 0000 Signed Impressions: Service Date/Time: Wednesday, September 07, 2016 16:12 - CONCLUSION: Normal examination for a patient of this age. Rashad Mello MD Micro and Labs Laboratory Tests Test 09/07/16 09/07/16 09/07/16 08:30 10:15 20:40 White Blood Count 8.8 6.7 Red Blood Count 4.30 4.19 Hemoglobin 12.6 12.2 Bedside Hemoglobin 12.2 Hematocrit 36.5 36.3 Bedside Hematocrit 36.0 Mean Corpuscular Volume 85.0 86.8 Mean Corpuscular Hemoglobin 29.4 29.2 Mean Corpuscular Hemoglobin 34.6 33.7 Concent Red Cell Distribution Width 13.3 13.3 Platelet Count 327 306 Mean Platelet Volume 7.8 8.0 Neutrophils (%) (Auto) 65.2 49.6 Lymphocytes (%) (Auto) 28.0 42.7 Monocytes (%) (Auto) 5.1 5.4 Eosinophils (%) (Auto) 0.7 1.2 Basophils (%) (Auto) 1.0 1.1 Neutrophils # (Auto) 5.7 3.3 Lymphocytes # (Auto) 2.5 2.9 Monocytes # (Auto) 0.5 0.4 Eosinophils # (Auto) 0.1 0.1 Basophils # (Auto) 0.1 0.1 CBC Comment DIFF FINAL DIFF FINAL Differential Comment Prothrombin Time 10.1 10.4 Prothromb Time International 0.9 0.9 Ratio Activated Partial 25.8 28.3 Thromboplast Time Bedside Sodium 139 Sodium Level 140 134 Bedside Potassium 3.9 Potassium Level 3.9 5.3 Bedside Chloride 99 Chloride Level 103 99 Carbon Dioxide Level 25.9 22.0 Anion Gap 11 13 Bedside Blood Urea Nitrogen 7 Blood Urea Nitrogen 8 9 Creatinine 0.68 0.70 Bedside Creatinine 0.5 Estimat Glomerular Filtration 75 103 Rate Bedside Glucose 359 Random Glucose 352 489 Calcium Level 7.9 7.9 Phosphorus Level 2.6 Total Bilirubin 0.2 0.5 Aspartate Amino Transf 13 17 (AST/SGOT) Alanine Aminotransferase 14 17 (ALT/SGPT) Alkaline Phosphatase 120 116 Total Protein 6.8 6.3 Albumin 2.8 2.6 Human Chorionic Gonadotropin, LESS THAN 1 Quant Ethyl Alcohol Level LESS THAN 3 Blood Type O POSITIVE Antibody Screen NEGATIVE Urine Color LIGHT-YELLOW Urine Turbidity CLEAR Urine pH 6.5 Urine Specific [place] 1.026 Urine Protein NEG Urine Glucose (UA) 1000 Urine Ketones 80 Urine Occult Blood TRACE Urine Nitrite NEG Urine Bilirubin NEG Urine Urobilinogen LESS THAN 2.0 Urine Leukocyte Esterase LARGE Urine RBC 1 Urine WBC 6 Urine Squamous Epithelial 2 Cells Urine Bacteria RARE Urine Mucus FEW Urine Yeast (Budding) RARE Microscopic Urinalysis Comment CULT NOT INDICATED Urine Opiates Screen NEG Urine Barbiturates Screen NEG Urine Amphetamines Screen NEG Urine Benzodiazepines Screen POS Urine Cocaine Screen NEG Urine Cannabinoids Screen NEG Adriano Zheng MD Sep 07, 2016 23:48
[2016-09-08] VITALS (12 sets, daily range): BP systolic 118–124; BP diastolic 55–76; PULSE 61–100; RESP 14–24; TEMP 97.8–98.7; O2SAT 96–98
[2016-09-08] MEDS: CHLORHEXIDINE GLUCONATE 2 % 1 PACK (2 CLOTHS) TOP SCH (04:00)
[2016-09-08 04:14] LABS: BASOPHIL # 0.1 TH/MM3 (0-0.2); BASOPHIL % 1.6 % (0.0-2.0); EOSINOPHIL # 0.2 TH/MM3 (0-0.4); HEMATOCRIT 35.7 % (35.0-46.0); HEMO FLAGS DIFF FINAL; LYMPH % 42.3 % (9.0-44.0); LYMPHOCYTE # 3.4 TH/MM3 (1.0-4.8); MEAN CELL VOLUME 85.4 FL (80.0-100.0); MEAN CORPUSCULAR HEMOGLOBIN 28.8 PG (27.0-34.0); MEAN CORPUSCULAR HGB CONC 33.8 % (32.0-36.0); MONO % 5.2 % (0.0-8.0); NEUT % 48.9 % (16.0-70.0); PLATELET COUNT 301 TH/MM3 (150-450); RED BLOOD COUNT 4.18 MIL/MM3 (4.00-5.30); RED CELL DISTRIBUTION WIDTH 13.3 % (11.6-17.2); WHITE BLOOD COUNT 8.1 TH/MM3 (4.0-11.0)
[2016-09-08 04:55] LABS: ALKALINE PHOSPHATASE 105 U/L (45-117); ALT (GPT) 18 U/L (10-53); ANION GAP 10 MEQ/L (5-15); AST (GOT) 12 U/L (15-37); BICARBONATE 24.6 MEQ/L (21.0-32.0); BLOOD UREA NITROGEN 8 MG/DL (7-18); CHLORIDE 103 MEQ/L (98-107); GLOMERULAR FILTRATION RATE 167 ML/MIN (>89); POTASSIUM 3.9 MEQ/L (3.5-5.1); SODIUM (NA) 138 MEQ/L (136-145); TOTAL BILIRUBIN ADULT 0.4 MG/DL (0.2-1.0)
--- NOTE | 2016-09-08 05:18 | MG ---
cc: AMPARO MORAN Lab No: Date: 09/07/2016 Age: 26 Sex: F Race: EEG# [id number] AKA: Sue Loera-Danica INDICATIONS A 26-year-old woman hit head on a stump. Four episodes of petit mal seizures, confused, word-finding problems. MEDICATIONS Morphine. Keppra. FINDINGS The recording shows some diffuse alpha and beta rhythms. Muscle artifact is seen. An 8 Hz symmetric posterior rhythm is at times seen. Several times a sharply contoured wave is seen over the bioccipital head regions, a little bit more on the right than the left on the bipolar montage is noted a phase reversing A small sharply contoured wave is seen over T6 right posterior temporal at epoch 30 on the bipolar montages. It is also seen somewhat on the transverse montage. The patient is status post hyperventilation at that point and has what almost appeared to be sleep spindle-like activity but not noted by the tech to be asleep. Photic stimulation was performed without significant posterior driving. Then a vertex sharp wave was seen and some sleep spindles as the patient is in Stage II sleep. A right arm jerk is noted that corresponds with what appears to be a vertex sharp wave. IMPRESSION Some small bioccipital and a right posterior temporal sharps seen and in the beginning of the recording a right posterior temporal seizure focus could be considered. Clinical correlation is needed. No prolonged seizure activity is noted during this. MD GLORIA Smart/WILLA /11:32 PM /5:05 AM
[2016-09-08] MEDS: INSULIN ASPART SUPPLEMENTAL SCALE SQ SCH ×4 (06:51→20:39)
[2016-09-08] MEDS ORDERED: MAGNESIUM HYDROXIDE SUSP 30 ML CUP PO PRN (07:15)
--- NOTE | 2016-09-08 08:36 | HHI.CCPN ---
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 Reported seizure activity at the scene and she was brought in as a trauma alert. Patient arrived alert and oriented, no external signs of traumatic injury. Last dose of insulin was at 4 am per patient, and she has no history of seizure activity in the past. In the trauma bay the patient stated everything is getting dark and she became unresponsive. She woke up after approximately after a minute, and was protecting airway CT of the head and C-spine was negative. Initial blood sugar was 359. Patient was admitted to ICU and critical care was consulted for medical management of hyperglycemia and type 1 diabetes, also for seizures following closed head injury. Patient states that she never had seizures before. Also she usually gets palpitations with SVT, did not feel chest pain or palpitation prior to this episode SUBJ 09/08: Patient had episode of L upper and lower ext weakness with L eye drooping lasted for [address] negative ? partial sz. EEG 09/07: Some small bioccipital and a right posterior temporal sharps seen and in the beginning of the recording a right posterior temporal seizure focus could be considered. On [facility]. D/W Dr. Zheng. EEG 09/07: Some small bioccipital and a right posterior temporal sharps seen and in the beginning of the recording a right posterior temporal seizure focus could be considered. Objective Vital Signs Date Time Temp Pulse Resp B/P Pulse Ox O2 Delivery O2 Flow Rate FiO2 09/08/16 06:00 72 09/08/16 04:00 97.8 19 122/71 96 09/07/16 19:00 Room Air 09/07/16 09:05 2 Intake and Output 09/07/16 09/07/16 09/08/16 08:00 16:00 00:00 Intake Total 855 ml 985 ml Balance 855 ml 985 ml Result Diagram: 09/08/1631709/08/[address] head cervical spine negative Objective Remarks General: A 26-year-old female lying in bed no acute distress, Head: Atraumatic normocephalic, mild posterior scalp tenderness over the occiput Eyes: Pupils equal round reactive to light extraocular movements intact sclerae ENT: There is no facial tenderness Neck: Soft, trachea is midline there is no tenderness to palpation Cardiovascular: No chest wall tenderness, or bruising. Regular rate and rhythm, no murmurs. Bedside Echo Nl EF, no evidence of MVP, or atrial clot on limited exam Respiratory: Clear to auscultation bilaterally Chest: No tenderness or crepitus to palpation Abdomen: Soft nontender nondistended. No organomegaly Extremities: No clubbing cyanosis or edema dorsalis pedis pulses palpable bilaterally Neurologic: Cranial nerves II through XII appear grossly intact, there is no focal neurologic deficit Urinary Catheter: Yes Assessment to: Continue A/P Assessment and Plan ASSESSMENT: Mechanical fall with Closed head injury without bleed Syncope vs absence sz at trauma bay Tonic clonic seizure after fall Hyperglycemia Type 1 diabetes History of SVT PLAN: NEURO: Closed head injury Seizure Syncope vs absence seizure -CT of the head and C-spine negative, MRI negative -TIA like episode on 09/07 at 7 PM most likely seizures -Continue Piter, neurology Dr. Zheng. -EEG 09/07: Some small bioccipital and a right posterior temporal sharps seen and in the beginning of the recording a right posterior temporal seizure focus could be considered. -IV Ativan when necessary for seizures -ASA 81 mg daily RESP: -Nasal cannula oxygen, DuoNeb if needed CV: History of SVT -Normal saline IV fluids 75 ml per hour, 2d echo. Carotid US -This incident does not seem to be cardiac related -Resume beta blockers (12.5mg BID) -Bedside Echo Nl EF, no evidence of MVP, or atrial clot on limited exam GI: -1800 ADA diet : -Monitor renal function closely. ID: -Monitor for infection HEME: -Monitor CBC, CMP, coags ENDO: Hyperglycemia Type 1 diabetes -No evidence of DKA at this time -Sliding scale insulin, Started Levemir 10U qhs yesterday, increase to 10 q12 -Electrolyte replacement protocol PROPH: -Bilateral lower extremity SCDs. Avoid chemical prophylaxis due to acute trauma. Protonix 40 mg by mouth daily LINES: -Utilize peripheral IVs, central line if needed CC time 40 min Benji Theodore MD Sep 08, 2016 08:36
[2016-09-08] MEDS ORDERED: INSULIN DETEMIR 100 UNITS/ML VIAL SQ SCH ×2 (09:00→21:00)
--- NOTE | 2016-09-08 09:00 | RADRPT ---
EXAM DATE/TIME: 09/08/2016 08:02 [facility] COMPARISON: No previous studies available for comparison. INDICATIONS : Seizure. MEDICAL HISTORY : Diabetic. SURGICAL HISTORY : Cholecystectomy. ENCOUNTER: Initial ACUITY: 1 day PAIN SCORE: 0/10 LOCATION: Bilateral neck PEAK SYSTOLIC VELOCITIES (cm/sec): ICA/CCA RATIO: Right: 0.7 Left: 0.5 ICA: Right: 76 Left: 72 CCA: Right: 114 Left: 137 ECA: Right: 99 Left: 69 VERTEBRAL: Right: 33 antegrade Left: 56 antegrade Elevated flow velocities and ICA/CCA ratios have been found to correlate with increased degrees of vessel stenosis, calculated as percentage of diameter relative to a normal segment of distal ICA/CCA FINDINGS: RIGHT CAROTID: No significant stenosis is visualized. The waveforms are within normal limits. LEFT CAROTID: No significant stenosis is visualized. The waveforms are within normal limits. VERTEBRAL ARTERIES: Antegrade flow is seen in both vertebral arteries. MISCELLANEOUS: None. CONCLUSION: No acute disease. Hu Mckeon MD on September 08, 2016 at 8:58 Board Certified Radiologist. This report was verified electronically.
[2016-09-08] MEDS ORDERED: PILL SPLITTER OTHER PRN (09:15)
[2016-09-08] MEDS: DOCUSATE SODIUM 50 MG/SENNA 8.6 MG TAB PO SCH ×2 (09:28→20:38)
[2016-09-08] MEDS: PANTOPRAZOLE SODIUM 40 MG VIAL IV PUSH SCH (09:28)
[2016-09-08] MEDS: ASPIRIN EC 81 MG TABEC PO SCH (09:28)
[2016-09-08] MEDS: SODIUM CHLOR 0.9% 1000 ML INJ 1,000 ML IV SCH ×2 (09:28→21:08)
[2016-09-08] MEDS: levETIRAcetam 500 MG TAB PO SCH ×2 (09:28→20:37)
[2016-09-08] MEDS: METOPROLOL TARTRATE 25 MG TAB PO SCH ×2 (09:29→20:37)
[2016-09-08] MEDS ORDERED: ATROPINE SULFATE 1 MG/10 ML SYRINGE ONE (11:04)
[2016-09-08] MEDS ORDERED: LIDOCAINE HCL 2% 100 MG/5 ML SYRINGE ONE (11:04)
[2016-09-08] MEDS ORDERED: EPINEPHrine HCL (1:10,000) 1 MG/10 ML SYRINGE ONE (11:04)
--- NOTE | 2016-09-08 11:48 | EKG ---
Date Performed: 09/07/2016 Time Performed: 19:08:49 PTAGE: 25 years EKG: Sinus rhythm WITH SINUS ARRHYTHMIA NORMAL ECG PREVIOUS TRACING : 09/07/2016 09.10 DOCTOR: Pawan Crandall Interpretating Date/Time 09/08/2016 11:44:55
--- NOTE | 2016-09-08 11:55 | EKG ---
Date Performed: 09/07/2016 Time Performed: 09:10:44 PTAGE: 89 years EKG: Sinus rhythm NORMAL ECG NO PREVIOUS TRACING DOCTOR: Pawan Crandall Interpretating Date/Time 09/08/2016 11:49:19
--- NOTE | 2016-09-08 15:02 | RADRPT ---
EXAM DATE/TIME: 09/08/2016 11:21 [facility] COMPARISON: MRI BRAIN W/O CONTRAST, September 07, 2016, 16:12. INDICATIONS : Seizures. MEDICAL HISTORY : Diabetes mellitus type 1. SURGICAL HISTORY : Cholecystectomy. ENCOUNTER: Initial ACUITY: 2 day PAIN SCORE: 0/10 LOCATION: Head Please note a normal MRA of the brain does not entirely exclude the possibility of a small aneurysm, nor the possibility of distal intracranial vessel disease. TECHNIQUE: 3D time of flight MRA was performed. Source images, multiplanar STS MIP, and 3D volume MIP reconstru ctions were reviewed. FINDINGS: There is good visualization of the intracranial vessels. The right posterior cerebral artery arises from the anterior circulation, a normal variant. There is no aneurysm, vascular displacement or shaista r branch vessel occlusion. CONCLUSION: Negative MRA of the brain. Ruben Simons MD FACR on September 08, 2016 at 14:18 Board Certified Radiologist. This report was verified electronically.
--- NOTE | 2016-09-08 19:01 | EC ---
Study Study Date:09/08/2016 STUDY CONCLUSIONS SUMMARY - Left ventricle: The cavity size was normal. Wall thickness was normal. Systolic function was normal. The estimated ejection fraction was in the range of 55% to 60%. Wall motion was normal; there were no regional wall motion abnormalities. - Aortic valve: Valve area: 2.27cm^2 (Vmax). If LV function is below 40, please consider prescribing an ACEI or ARB or document rationale for non-use. PROCEDURE DATA STUDY STATUS: Elective. Procedure: Transthoracic echocardiography. Image quality was good. Scanning was performed from the parasternal, apical, and subcostal acoustic windows. Study completion: The patient tolerated the procedure well. Transthoracic echocardiography. M-mode, complete 2D, complete spectral Doppler, and color Doppler. Height: Height: 65in. Weight: Weight: 149.7lb. Body mass index: BMI: 25kg/m^2. Body surface area: BSA: 1.75m^2. Patient status: Inpatient. CARDIAC ANATOMY LEFT VENTRICLE: The cavity size was normal. Wall thickness was normal. Systolic function was normal. The estimated ejection fraction was in the range of 55% to 60%. Wall motion was normal; there were no regional wall motion abnormalities. AORTIC VALVE: Trileaflet; normal thickness leaflets. Doppler: Transvalvular velocity was within the normal range. There was no stenosis. No regurgitation. Valve area: 2.27cm^2 (Vmax). Indexed valve area: 1.3cm^2/m^2 (Vmax). AORTA: Aortic root: The aortic root was normal in size. MITRAL VALVE: Structurally normal valve. Doppler: Transvalvular velocity was within the normal range. There was no evidence for stenosis. Trace regurgitation. Peak gradient: 6mm Hg (D). LEFT ATRIUM: The atrium was normal in size. RIGHT VENTRICLE: The cavity size was normal. Wall thickness was normal. PULMONIC VALVE: Doppler: Transvalvular velocity was within the normal range. There was no evidence for stenosis. Trace regurgitation. TRICUSPID VALVE: Structurally normal valve. Doppler: Transvalvular velocity was within the normal range. Trace regurgitation. PULMONARY ARTERY: The main pulmonary artery was normal-sized. Systolic pressure was within the normal range. RIGHT ATRIUM: The atrium was normal in size. PERICARDIUM: There was no pericardial effusion. SYSTEMIC VEINS: Inferior vena cava: The vessel was normal in size. Patient weight: 149.7lb _Ejection fraction:_ 65-75% _Fractional shortening:_ 32% up to 5Kg 5-11.5Kg 11.6-22.9Kg 23-45Kg 45-57Kg Aortic Root 7-13 <17 13-22 17-27 17-27 LA diam 6-13 <23 24-38 33-47 37-40 RVID 10-17 7-15 7-15 7-18 8-17 LVIDd 12-22 <32 24-38 33-47 37-40 LVPW 2-4 3-6 5-7 6-8 7-8 IVS 2-4 3-6 5-7 6-8 7-8 BASIC MEASUREMENTS ADULT NORMAL Left ventricle LV internal dimension, ED, chordal 44.7 mm 43-52 level, PLAX LV internal dimension, ES, chordal 33.5 mm 23-38 level, PLAX Fractional shortening, chordal level, *25 % >29 PLAX LV posterior wall thickness, ED 7.51 mm IVS/LVPW ratio, ED 1.09 <1.3 Ventricular septum Septal thickness, ED 8.15 mm Aortic valve Leaflet separation 21 mm 15-26 BASIC MEASUREMENTS ADULT NORMAL Aortic valve Leaflet separation 21 mm 15-26 Aorta Root diameter, ED 26 mm 20-37 Left atrium Anterior-posterior dimension, ES 34 mm 19-40 Anterior-posterior dimension index, ES 1.94 cm/m^2 <2.2 LA/aortic root ratio 1.31 DOPPLER MEASUREMENTS ADULT NORMAL Main pulmonary artery Pressure, S 23 mm Hg =30 Pressure, ED 14 mm Hg Aortic valve Peak velocity, S 152 cm/s Valve area, Vmax 2.27 cm^2 Valve area index, Vmax 1.3 cm^2/m^2 Mitral valve Peak E-wave velocity 118 cm/s Peak A-wave velocity 60.2 cm/s Deceleration time 180 ms 150-230 Peak gradient, D 6 mm Hg Peak E/A ratio 2 Maximal regurgitant velocity 234 cm/s Tricuspid valve Regurgitant peak velocity 213 cm/s Peak RV-RA gradient, S 18 mm Hg Maximal regurgitant velocity 213 cm/s Systemic veins Estimated CVP 10 mm Hg Right ventricle RV pressure, S 28 mm Hg <30 Pulmonic valve Peak velocity, S 117 cm/s Regurgitant velocity, ED 96.4 cm/s LEGEND: Mean values are shown as u=mean value. Asterisk (*) hickey values outside specified normal range. Prepared and signed by Maurice Chowdhury [id number]
[2016-09-08] MEDS: ACETAMINOPHEN/HYDROcodone 325 MG/5 MG TAB PO PRN (20:37)
--- NOTE | 2016-09-08 22:16 | HHI.PR ---
Review/Management Diagnosis - Seizure Post TBI - Stroke alert, not iv tPA candidate due to rapid resolution of symptoms and NIHSS 0 - TIA - Insulin dependant diabetes mellitus Plan Neurochecks Q4h Aspirin 81 mg daily Keppra 500mg bid Seizure precautions DVT prophylaxis I discussed with patient at length the adverse effects of AEDs' and the effect on females at the child bearing age, patient states that she does not plan to be in the near future, hence she will continue taking Keppra a the current dose, also explained to her the need to be on Folic acid when she becomes , she understands well. - Patient is stable from the neurologic standpoint, neurologic exam is non-focal , if she remains so, patient may be transferred to a step down unit or released from the hospital. - Follow up with neurology outpatient in four weeks Diagnosis/Plan: Subjective Subjective Comments No acute events reported last night reported a stroke alert for a left sided face droop and left sided weakness, not a tPA candidate due to low NIHSS, and rapid resolution of symptoms , head CT scan w/o contrast was reported with no acute intracranial abnormality EEG revealed bioccipital sharp waves and right posterior temporal sharp waves No reported seizure activity overnight MRA head is reported as normal CUS with no significant stenosis Active Medications Current Medications Medications (Trade) Dose Ordered Sig/Jami Route Start Time Stop Time Status Last Admin (Keppra) 500 mg Q12HR PO 09/07/16 21:00 09/08/16 20:37 (NS Flush) 2 ml UNSCH PRN IVF 09/07/16 09:15 ([place] 5-325 Mg) 1 tab Q4H PRN PO 09/07/16 09:15 09/08/16 20:37 (Tylenol) 650 mg Q6H PRN PO 09/07/16 10:00 Miscellaneous Information 1 [id number] XX 09/07/16 09:15 (Chlorhexidine 2% Cloth) 3 pack Taper DAILY@04 TOP 09/08/16 04:00 09/04/17 03:59 (Chlorhexidine 2% Cloth) 3 pack UNSCH PRN TOP 09/07/16 09:15 Lorazepam 1 mg 1 mg Q2H PRN IV PUSH 09/07/16 11:30 Sodium Chloride 1,000 ml @ 75 mls/hr [id number] IV 09/07/16 11:45 09/08/16 09:28 Potassium Chloride 100 ml @ 50 mls/hr Q2H PRN IV 09/07/16 12:00 (KCl 20 Meq Premix Inj) 100 ml @ 50 mls/hr Q2H PRN IV 09/07/16 12:00 Potassium Chloride 40 meq 40 meq UNSCH PRN PO/TUBE 09/07/16 12:00 Potassium Chloride 100 ml @ 25 mls/hr UNSCH PRN IV 09/07/16 12:00 Potassium Chloride 100 ml @ 50 mls/hr Q2H PRN IV 09/07/16 12:00 (Magnesium Sulfate Inj/NS Inj) 100 ml @ 50 mls/hr UNSCH PRN IV 09/07/16 12:00 Magnesium Oxide 800 mg 800 mg UNSCH PRN PO 09/07/16 12:00 (Magnesium Sulfate Inj/NS Inj) 100 ml @ 50 mls/hr UNSCH PRN IV 09/07/16 12:00 Potassium Phosphate 2000 mg 2,000 mg Q4H PRN PO 09/07/16 12:00 (Sodium Phosphate Inj/NS 250 ml Inj) 250 ml @ 42 mls/hr UNSCH PRN IV 09/07/16 12:00 (KCl 40 Meq/30 ml Liq) 40 meq UNSCH PRN PO/TUBE 09/07/16 12:00 Potassium Phosphate 2000 mg 2,000 mg UNSCH PRN PO/TUBE 09/07/16 12:00 (Potassium Phosphate Inj/NS 250 ml Inj) 260 ml @ 42 mls/hr UNSCH PRN IV 09/07/16 12:00 (Ecotrin Ec) 81 mg DAILY PO 09/08/16 09:00 09/08/16 09:28 (Protonix Inj) 40 mg Q24H IV PUSH 09/08/16 08:00 09/08/16 09:28 (Swetha-Colace) 1 tab BID PO 09/08/16 09:00 09/08/16 09:28 (Milk Of Magnesia Liq) 30 ml DAILY PRN PO 09/08/16 07:15 (Lopressor) 12.5 mg Q12HR PO 09/08/16 09:00 09/08/16 20:37 (Pill Splitter) 1 ea UNSCH PRN OTHER 09/08/16 09:15 (Levemir Inj) 15 units Q12H SQ 09/08/16 21:00 09/08/16 20:39 Allergies Allergies Coded Allergies Phenergan (Verified Allergy, Unknown, 09/07/16) Exam I&O / VS 09/07/16 09/07/16 09/08/16 15:00 23:00 07:00 Intake Total 855 ml 985 ml 875 ml Balance 855 ml 985 ml 875 ml Intake Oral 360 ml 240 ml IV Total 855 ml 625 ml 635 ml # Voids 3 2 1 # Bowel Movements 0 0 Vital Signs Date Time Temp Pulse Resp B/P Pulse Ox O2 Delivery O2 Flow Rate FiO2 09/08/16 21:37 18 09/08/16 20:00 79 09/08/16 19:00 96 Room Air 09/08/16 18:00 88 09/08/16 16:00 98.3 100 16 120/73 96 09/08/16 16:00 100 09/08/16 14:00 61 09/08/16 12:00 81 09/08/16 12:00 98.4 81 14 122/71 98 09/08/16 10:00 64 09/08/16 08:00 98.6 64 18 121/55 96 09/08/16 08:00 64 09/08/16 07:00 97 Room Air 09/08/16 06:00 72 09/08/16 04:00 81 09/08/16 04:00 97.8 81 19 122/71 96 09/08/16 02:00 78 09/08/16 00:00 71 09/08/16 00:00 98.4 71 18 118/69 96 General: Alert and Oriented, No acute distress Eye: PERRL, EOMI, Normal conjuctiva Respiratory: Lungs CTA, Non-labored respirations Cardiology: Normal rate, No murmur Musculoskeletal: ROM Neurologic: Alert, Oriented, Normal motor, CN II-XII intact Psychiatric: Cooperative, Appropriate mood & affect Objective Radiology Results Last 72 hours Impressions Head Magnetic Resonance Angiography 09/08/16 0000 Signed Impressions: Service Date/Time: Thursday, September 08, 2016 11:21 - CONCLUSION: Negative MRA of the brain. Ruben Simons MD FACR Carotid Artery Ultrasound 09/08/16 0000 Signed Impressions: Service Date/Time: Thursday, September 08, 2016 08:02 - CONCLUSION: No acute disease. Hu Mckeon MD Pelvis X-Ray 09/07/1637 Signed Impressions: Service Date/Time: Wednesday, September 07, 2016 08:26 - CONCLUSION: No acute fracture. Fortunato Toney MD Head CT 09/07/1637 Signed Impressions: Service Date/Time: Wednesday, September 07, 2016 08:46 - CONCLUSION: No acute intracranial disease. Fortunato Toney MD Chest X-Ray 09/07/16836 Signed Impressions: Service Date/Time: Wednesday, September 07, 2016 08:26 - CONCLUSION: No acute disease. Fortunato Toney MD Cervical Spine CT 09/07/16836 Signed Impressions: Service Date/Time: Wednesday, September 07, 2016 08:46 - CONCLUSION: 1. No fracture or subluxation. Fortunato Toney MD Head CT 09/07/16 0000 Signed Impressions: Service Date/Time: Wednesday, September 07, 2016 20:14 - CONCLUSION: Normal examination. Rashad Mello MD Brain MRI 09/07/16 0000 Signed Impressions: Service Date/Time: Wednesday, September 07, 2016 16:12 - CONCLUSION: Normal examination for a patient of this age. Rashad Mello MD Micro and Labs Laboratory Tests Test 09/08/16 03:18 White Blood Count 8.1 Red Blood Count 4.18 Hemoglobin 12.0 Hematocrit 35.7 Mean Corpuscular Volume 85.4 Mean Corpuscular Hemoglobin 28.8 Mean Corpuscular Hemoglobin 33.8 Concent Red Cell Distribution Width 13.3 Platelet Count 301 Mean Platelet Volume 7.7 Neutrophils (%) (Auto) 48.9 Lymphocytes (%) (Auto) 42.3 Monocytes (%) (Auto) 5.2 Eosinophils (%) (Auto) 2.0 Basophils (%) (Auto) 1.6 Neutrophils # (Auto) 4.0 Lymphocytes # (Auto) 3.4 Monocytes # (Auto) 0.4 Eosinophils # (Auto) 0.2 Basophils # (Auto) 0.1 CBC Comment DIFF FINAL Differential Comment Sodium Level 138 Potassium Level 3.9 Chloride Level 103 Carbon Dioxide Level 24.6 Anion Gap 10 Blood Urea Nitrogen 8 Creatinine 0.46 Estimat Glomerular Filtration 167 Rate Random Glucose 215 Calcium Level 8.1 Phosphorus Level 3.4 Magnesium Level 2.0 Total Bilirubin 0.4 Aspartate Amino Transf 12 (AST/SGOT) Alanine Aminotransferase 18 (ALT/SGPT) Alkaline Phosphatase 105 Total Protein 6.1 Albumin 2.6 Adriano Zheng MD Sep 08, 2016 22:16
[2016-09-09] VITALS (9 sets, daily range): BP systolic 108–117; BP diastolic 58–75; PULSE 60–97; RESP 16–21; TEMP 98.2–98.5; O2SAT 96–100
[2016-09-09] MEDS: CHLORHEXIDINE GLUCONATE 2 % 1 PACK (2 CLOTHS) TOP SCH (04:00)
[2016-09-09] MEDS: INSULIN ASPART SUPPLEMENTAL SCALE SQ SCH ×3 (07:02→15:07)
--- NOTE | 2016-09-09 08:08 | HHI.CCPN ---
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 Reported seizure activity at the scene and she was brought in as a trauma alert. Patient arrived alert and oriented, no external signs of traumatic injury. Last dose of insulin was at 4 am per patient, and she has no history of seizure activity in the past. In the trauma bay the patient stated everything is getting dark and she became unresponsive. She woke up after approximately after a minute, and was protecting airway CT of the head and C-spine was negative. Initial blood sugar was 359. Patient was admitted to ICU and critical care was consulted for medical management of hyperglycemia and type 1 diabetes, also for seizures following closed head injury. Patient states that she never had seizures before. Also she usually gets palpitations with SVT, did not feel chest pain or palpitation prior to this episode SUBJ 2: Patient had episode of L upper and lower ext weakness with L eye drooping lasted for [address] negative ? partial sz. EEG 09/07: Some small bioccipital and a right posterior temporal sharps seen and in the beginning of the recording a right posterior temporal seizure focus could be considered. On [facility]. D/W Dr. Zheng. EEG /: Some small bioccipital and a right posterior temporal sharps seen and in the beginning of the recording a right posterior temporal seizure focus could be considered. SUBJ 2 No further seizure. Echo shows trace MR, TR and [place]. No palpitation. Blood sugar HS 333. Patient states that sugar runs high when she is stressed. No symptoms of DKA Objective Vital Signs Date Time Temp Pulse Resp B/P Pulse Ox O2 Delivery O2 Flow Rate FiO2 09/09/16 06:00 62 09/09/16 04:00 98.2 16 108/60 96 09/08/16 19:00 Room Air 09/07/16 09:05 2 Intake and Output 09/08/16 09/08/16 09/09/16 08:00 16:00 00:00 Intake Total 875 ml 564 ml 883 ml Balance 875 ml 564 ml 883 ml Result Diagram: 09/08/16 0318 09/08/[address] head cervical spine negative Objective Remarks General: A 26-year-old female lying in bed no acute distress, Head: Atraumatic normocephalic, mild posterior scalp tenderness over the occiput Eyes: Pupils equal round reactive to light extraocular movements intact sclerae ENT: There is no facial tenderness Neck: Soft, trachea is midline there is no tenderness to palpation Cardiovascular: No chest wall tenderness, or bruising. Regular rate and rhythm, no murmurs. Bedside Echo Nl EF Respiratory: Clear to auscultation bilaterally Chest: No tenderness or crepitus to palpation Abdomen: Soft nontender nondistended. No organomegaly Extremities: No clubbing cyanosis or edema dorsalis pedis pulses palpable bilaterally Neurologic: Cranial nerves II through XII appear grossly intact, there is no focal neurologic deficit Skin: Old appearing bruises on R shoulder LLQ abdomen and bilateral shins (Job related per patient) Urinary Catheter: Yes Assessment to: Continue A/P Assessment and Plan ASSESSMENT: Mechanical fall with Closed head injury without bleed Syncope vs absence sz at trauma bay Tonic clonic seizure after fall Hyperglycemia Type 1 diabetes History of SVT PLAN: NEURO: Closed head injury Seizure Syncope vs absence seizure -CT of the head and C-spine negative, MRI, MRA negative -TIA like episode on 09/07 at 7 PM most likely seizures -Continue Piter, neurology Dr. Zheng. -EEG 09/07: Some small bioccipital and a right posterior temporal sharps seen and in the beginning of the recording a right posterior temporal seizure focus could be considered. -IV Ativan when necessary for seizures -ASA 81 mg daily -EEG repeat today RESP: -Nasal cannula oxygen, DuoNeb if needed CV: History of SVT -DC Normal saline IV fluids 75 ml per hour, Carotid US normal -Echo Nl EF. Trace MR, Trace TR, Trace [place] -This incident does not seem to be cardiac related -Resumed beta blockers (12.5mg BID) GI: -1800 ADA diet : -Monitor renal function closely. ID: -Monitor for infection HEME: -Monitor CBC, CMP, coags ENDO: Hyperglycemia Type 1 diabetes -No evidence of DKA at this time -Sliding scale insulin, Levemir increase to 22 units q12 -Electrolyte replacement protocol PROPH: -Bilateral lower extremity SCDs. Avoid chemical prophylaxis due to acute trauma , increase activity. Protonix 40 mg by mouth daily LINES: -Utilize peripheral IVs, central line if needed Level 3 Dispo: If cleared by neuro, can DC home, to follow up with neuro and PCP. Cannot be cleared for work or driving until seen and cleared by neuro Benji Theodore MD Sep 09, 2016 08:08
[2016-09-09] MEDS ORDERED: INSULIN DETEMIR 100 UNITS/ML VIAL SQ SCH (09:00)
[2016-09-09] MEDS: METOPROLOL TARTRATE 25 MG TAB PO SCH (09:00)
[2016-09-09] MEDS: levETIRAcetam 500 MG TAB PO SCH (10:40)
[2016-09-09] MEDS: ASPIRIN EC 81 MG TABEC PO SCH (10:40)
[2016-09-09] MEDS: DOCUSATE SODIUM 50 MG/SENNA 8.6 MG TAB PO SCH (10:40)
[2016-09-09] MEDS: PANTOPRAZOLE SODIUM 40 MG VIAL IV PUSH SCH (10:41)
[2016-09-09] MEDS: SODIUM CHLOR 0.9% 1000 ML INJ 1,000 ML IV SCH (10:41)
--- NOTE | 2016-09-09 13:34 | MG ---
cc: AMPARO MORAN Lab No: [id number] Date: 09/09/2016 Age: 25 Sex: F Race: __ INDICATIONS This is a 25-year-old girl with possible bilateral occipital sharps on prior EEG, fell his head. MEDICATIONS 1. Keppra 2. Aspirin DESCRIPTION Diffuse alpha and beta rhythms are seen which are synchronous and symmetric. Hyperventilation was performed without significant change in the background. Photic stimulation was performed without any posterior driving. Overall, his recording is synchronous and symmetric. The patient appears to fall asleep with some sleep spindles after hyperventilation. No occipital lobe abnormalities are noted. No sharps are seen over the occipital lobe. IMPRESSION A normal awake and sleep EEG. No evidence for a focal or diffuse abnormality. Specifically, I did not see any occipital lobe abnormalities. MD GLORIA Smart/KEN /1:19 PM /1:29 PM
[2016-09-09] MEDS ORDERED: LEVE500 PO (16:08)
[2016-09-09] MEDS ORDERED: ASPI81TA11 PO (16:08)
--- NOTE | 2016-09-09 16:23 | HHI.DS ---
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 Reported seizure activity at the scene x3 and she was brought in as a trauma alert. Patient arrived alert and oriented, no external signs of traumatic injury. Last dose of insulin was at 4 am per patient, and she has no history of seizure activity in the past. In the trauma bay the patient stated everything is getting dark and she became unresponsive. She woke up after approximately a minute, and was protecting airway CT of the head and C-spine was negative. Initial blood sugar was 359. Patient was admitted to ICU and critical care was consulted for medical management of hyperglycemia and type 1 diabetes, also for seizures following closed head injury. Patient states that she never had seizures before. Also she usually gets palpitations with SVT, did not feel chest pain or palpitation prior to this episode CBC/BMP: 09/08/16 0318 09/08/16 0318 Significant Findings Laboratory Tests Test 09/07/16 09/07/16 09/07/16 09/08/16 08:30 10:15 20:40 03:18 Bedside Hematocrit 36.0 % (38.0-51.0) Bedside Blood Urea Nitrogen 7 MG/DL (8-26) Bedside Creatinine 0.5 MG/DL (0.6-1.0) Estimat Glomerular Filtration 75 ML/MIN (>89) Rate Bedside Glucose 359 MG/DL (60-95) Random Glucose 352 MG/DL 489 MG/DL 215 MG/DL (74-106) (74-106) (74-106) Calcium Level 7.9 MG/DL 7.9 MG/DL 8.1 MG/DL (8.5-10.1) (8.5-10.1) (8.5-10.1) Aspartate Amino Transf 13 U/L (15-37) 12 U/L (15-37) (AST/SGOT) Alkaline Phosphatase 120 U/L (45-117) Albumin 2.8 GM/DL 2.6 GM/DL 2.6 GM/DL (3.4-5.0) (3.4-5.0) (3.4-5.0) Urine Glucose (UA) 1000 mg/dL (NEG) Urine Ketones 80 mg/dL (NEG) Urine Occult Blood TRACE (NEG) Urine Leukocyte Esterase LARGE (NEG) Urine WBC 6 /hpf (0-5) Urine Bacteria RARE /hpf (NONE) Urine Mucus FEW /lpf (OCC) Urine Yeast (Budding) RARE (NONE) Urine Benzodiazepines Screen POS (NEG) Sodium Level 134 MEQ/L (136-145) Potassium Level 5.3 MEQ/L (3.5-5.1) Total Protein 6.3 GM/DL 6.1 GM/DL (6.4-8.2) (6.4-8.2) Creatinine 0.46 MG/DL (0.50-1.00) Imaging CT head, MRI, MRA negative EEG 09/07: Some small bioccipital and a right posterior temporal sharps seen and in the beginning of the recording a right posterior temporal seizure focus could be considered. O EEG 09/09: Normal Echo 09/08 shows trace MR, TR and NY. PE at Discharge General: A 25-year-old female lying in bed no acute distress, Head: Atraumatic normocephalic, mild posterior scalp tenderness over the occiput Eyes: Pupils equal round reactive to light extraocular movements intact sclerae ENT: There is no facial tenderness Neck: Soft, trachea is midline there is no tenderness to palpation Cardiovascular: No chest wall tenderness, or bruising. Regular rate and rhythm, no murmurs. Bedside Echo Nl EF Respiratory: Clear to auscultation bilaterally Chest: No tenderness or crepitus to palpation Abdomen: Soft nontender nondistended. 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 Reported seizure activity at the scene and she was brought in as a trauma alert. Patient arrived alert and oriented, no external signs of traumatic injury. Last dose of insulin was at 4 am per patient, and she has no history of seizure activity in the past. In the trauma bay the patient stated everything is getting dark and she became unresponsive. She woke up after approximately after a minute, and was protecting airway CT of the head and C-spine was negative. Initial blood sugar was 359. Patient was admitted to ICU and critical care was consulted for medical management of hyperglycemia and type 1 diabetes, also for seizures following closed head injury. Patient states that she never had seizures before. Also she usually gets palpitations with SVT, did not feel chest pain or palpitation prior to this episode Patient had episode of L upper and lower ext weakness with L eye drooping lasted for 30 min at 7PM on 09/07/16. CT negative ? partial sz vs post ictal. EEG 09/07: Some small bioccipital and a right posterior temporal sharps seen and in the beginning of the recording a right posterior temporal seizure focus could be considered. On Kera. D/W Dr. Zheng. SUBJ 09/09 No further seizure. Echo shows trace MR, TR and NY. No palpitation. Blood sugar HS 333. Patient states that sugar runs high when she is stressed. No symptoms of DKA. EEG repeat today normal. Patient like to be discharged home I discussed with Dr. Zheng. Continue Kera, follow up with Dr. Zheng in [address] for 6 months, and then need clearance from neurology. Seizure precautions. She is cleared for work, other than cannot drive per discussion with Dr. Zheng Pt Condition on Discharge: Stable Discharge Disposition: Discharge Home Discharge Instructions DIET: Follow Instructions for: As Tolerated, No Restrictions, Diabetic Diet Activities you can perform: See Additionl Instruction Other Activity Instructions: Cannot drive for 6 months, and then need clearance from neurology. Seizure precautions. She is cleared for work, other than cannot drive per discussion with Dr. Zheng New Medications: Aspirin (Aspirin EC) 81 Mg Tabdr 81 MG PO DAILY Stroke Prevention Days 30 Ref 0 TAB Levetiracetam (Keppra) 500 Mg Tab 500 MG PO Q12HR Seizure Control Days 30 Ref 0 TAB Additional Information Make appointment to see Dr. Zheng in 4 weeks Resume your home medications of metoprolol and Insulin as before. Please discuss with PCP about adequacy of diabetic control Benji Theodore MD Sep 09, 2016 16:23
--- NOTE | 2016-09-09 18:03 | EKG ---
Date Performed: 09/09/2016 Time Performed: 07:39:10 PTAGE: 25 years EKG: Sinus rhythm Since previous tracing, no significant change noted Normal ECG PREVIOUS TRACING : 09/07/2016 19.08 DOCTOR: Jordan Mcconnell Interpretating Date/Time 09/09/2016 18:02:09
== END 2016-09-09 17:34 | disposition home or self-care (01) | DRG 101 ==
LOC: NEPI 08:27 → EDBD 09:26 → MERGE 09:26 → NEDA 09:26 → N03A 10:46
PROVIDERS: ADMIT Internal Medicine; ATTEND Internal Medicine
DX: G40.89 Other seizures (principal); E10.65 Type 1 diabetes mellitus with hyperglycemia; S09.8XXA Other specified injuries of head, initial encounter; Z79.4 Long term (current) use of insulin; W01.0XXA Fall on same level from slipping, tripping and stumbling without subsequent striking against object, initial encounter; Y93.01 Activity, walking, marching and hiking; Y92.9 Unspecified place or not applicable; Z82.49 Family history of ischemic heart disease and other diseases of the circulatory system; Z86.79 Personal history of other diseases of the circulatory system
CPT/HCPCS: 70450; 70544; 70551; 71010; 72125; 72170; 80053; 80307; 80320; 81001; 82435; 82565; 82947; 82948; 83735; 84100; 84132; 84295; 84520; 84702; 85025; 85610; 85730; 86850; 86900; 86901; 93005; 93306; 93880; 95819; 99291; C9113; G0390; J0171; J0461; J1815; J1817; J1953; J2270; J2765; J7030; J7120

== ENCOUNTER 2017-10-05 00:37 | Inpatient (IN) | payer SELFPAY ==
[2017-10-05] VITALS (13 sets, daily range): BP systolic 104–150; BP diastolic 53–93; PULSE 87–150; RESP 16–28; TEMP 97.6–99.1; O2SAT 96–100
[~2017-10-05] VITALS: Ht 177.8 cm; Wt 96.0 kg
[~2017-10-05 00:37] MED LIST changes: +ASPI81TA23 PO; +LEVE500 PO
[2017-10-05] MEDS ORDERED: VIMP200T PO (01:42)
[2017-10-05] MEDS ORDERED: NOVOLOGP2 SQ (01:42)
[2017-10-05] MEDS ORDERED: AMIT25TA9 PO (01:42)
[2017-10-05] MEDS ORDERED: LANTUS2P SQ (01:42)
[2017-10-05] MEDS ORDERED: ONDANSETRON HCL 4 MG/2 ML VIAL IV ONE ×2 (02:15→03:45)
[2017-10-05] MEDS ORDERED: SODIUM CHLOR 0.9% 1000 ML INJ 1,000 ML IV ONE ×2 (02:15→03:00)
--- NOTE | 2017-10-05 02:15 | PD ---
HPI Chief Complaint: Suicide Ideation/Attempt Time Seen by Provider: 01:59 Travel History International Travel<30 days: No Contact w/Intl Traveler<30days: No Traveled to known affect area: No History of Present Illness HPI The patient is a 26 year old female who presents to the [facility] emergency department with a history of agitation that began tonight after drinking alcohol. She is followed by the 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 She is in physical therapy 3 x per week current. She is frustrated by how slow her healing process is occurring. She denies any history of depression or anxiety being diagnosed the past. She has DM that was diagnosed at 14 years of age. She last administered insulin at 1:45 PM- SSI based on her carbohydrate intake. She last gave herself Lantus- 35 U this AM. She is on Lantus 35 U bid. The patient denies any history of fever, recent fevers, neck pain, chest pain, shortness of breath, abdominal pain, diarrhea, urinary symptoms, or other new neurologic symptoms. She has a cough and congestion that began 2-3 weeks ago. Her cough is productive of yellow sputum. She last had an elevated temp of 99- 5 days ago. She denies any suicidal or homicidal ideations. She reports having nausea and vomiting since arriving in the emergency department. 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 Autoimmune Disease: No Blood Disorders: No Anxiety: No Depression: No Heart Rhythm Problems: Yes (SVT/cardio-neurogenic syncope) Cancer: No Cardiovascular Problems: Yes (cardio-neurogenic syncope/SVT) High Cholesterol: No Chest Pain: No Congestive Heart Failure: No Diabetes: Yes Patient Takes Glucophage: Yes (10/04/2017 2100) Diminished Hearing: No Endocrine: Yes (type 1 diabetes) Genitourinary: No Immune Disorder: No Musculoskeletal: No Neurologic: No Psychiatric: No Reproductive: No Respiratory: No Immunizations Current: Yes Sickle Cell Disease: No Thyroid Disease: No Tetanus Vaccination: < 5 Years Influenza Vaccination: Yes ?: Not LMP: 09/12/2017 : 0 Para: 0 Miscarriage: 0 : 0 Past Surgical History Narrative Surgical The patient's past medical history is significant for cholecystectomy and wisdom teeth extraction Abdominal Surgery: Yes (gall bladder) Cardiac Surgery: No Cholecystectomy: Yes Ear Surgery: No Endocrine Surgery: No Eye Surgery: No Genitourinary Surgery: No Gynecologic Surgery: No Oral Surgery: Yes (wisdom teeth) Thoracic Surgery: No Other Surgery: Yes (gall bladder and wisdom teeth) Social History Alcohol Use: Yes ("I did drink a bit") Tobacco Use: No Substance Use: No Allergies-Medications (Allergen,Severity, Reaction): Coded Allergies: promethazine (Verified Allergy, Unknown, 10/05/17) Reported Meds & Prescriptions Reported Meds & Active Scripts Active Reported Novolog Inj (Insulin Aspart) 1,000 Unit/10 Ml Vial 0 SQ DIRECTED Sliding Scale as directed. Vimpat (Lacosamide) 200 Mg Tab 200 Mg PO BID Amitriptyline (Amitriptyline HCl) 25 Mg Tab 25 Mg PO HS Lantus Inj (Insulin Glargine) 1,000 Unit/10 Ml Vial 35 Units SQ BID Review of Systems Except as stated in HPI: all other systems reviewed are Neg General / Constitutional: No: Fever Eyes: No: Visual changes HENT: No: Headaches Cardiovascular: No: Chest Pain or Discomfort Respiratory: No: Shortness of Breath Gastrointestinal: Positive: Nausea, Vomiting, No: Abdominal Pain Genitourinary: No: Dysuria Musculoskeletal: No: Pain Skin: No Rash Neurologic: Positive: Focal Abnormalities, Seizures, No: Weakness, Change in Mentation, Slurred Speech, Sensory Disturbance Psychiatric: Positive: Anxiety, Depression, Mood Disorder, No: Suicidal Ideations, Disorder of Thought, Substance Abuse, Homicidal Ideation Endocrine: No: Polydipsia Hematologic/Lymphatic: No: Easy Bruising Physical Exam Narrative General: The patient is a well-developed well-nourished female in no acute distress. Head and Neck exam: Head is normocephalic atraumatic. Eyes: EOMI, pupils are equal round and reactive to light. Nose: Midline septum with pink mucous membranes Mouth: Dentition unremarkable. Moist mucus membranes. Posterior oropharynx is not erythematous. No tonsillar hypertrophy. Uvula midline. Airway patent. Neck: No palpable lymphadenopathy. No nuchal rigidity. No thyromegaly. Cardiovascular: Sinus tachycardia in the 120s-130 without murmurs, gallops, or rubs. No pulse deficit to the extremities on simultaneous auscultation and palpation of her radial artery. Lungs: Clear to auscultation bilaterally. No wheezes, rhonchi, or rales. Abdomen: Soft, without tenderness to palpation in all 4 quadrants of the abdomen. No guarding, rebound, or rigidity. Normal bowel sounds are audible. No tenderness on palpation of McBurney's point. Negative Groves sign. Extremities: No clubbing, cyanosis, or edema. 2+ pulses in all 4 extremities. No calf tenderness on palpation. Back: No costovertebral angle tenderness to palpation. Neurologic Exam: Grossly nonfocal Skin Exam: No rash noted. Intact skin that is warm and dry. Data Data Last Documented VS Vital Signs Date Time Temp Pulse Resp B/P (MAP) Pulse Ox O2 Delivery O2 Flow Rate FiO2 10/05/17 02:21 100 Room Air 10/05/17 00:45 98.4 150 28 150/91 (110) Orders Orders Complete Blood Count With Diff (10/05/17 02:00) Comprehensive Metabolic Panel (10/05/17 02:00) Thyroid Stimulating Hormone (10/05/17 02:00) Urinalysis - C+S If Indicated (10/05/17 02:00) Ed Urine Pregnancytest Poc (10/05/17 02:00) Iv Access Insert/Monitor (10/05/17 02:00) Ecg Monitoring (10/05/17 02:00) Psych Screen (10/05/17 02:00) Drug Screen, Random Urine (10/05/17 02:00) Alcohol (Ethanol) (10/05/17 02:00) Salicylates (Aspirin) (10/05/17 02:00) Tylenol (Acetaminophen) (10/05/17 02:00) Lipase (10/05/17 02:10) Blood Gas Venous Ph (10/05/17 02:10) Beta Hydroxybutyrate (Acetone) (10/05/17 02:10) Chest, Single Ap (10/05/17 02:10) Oximetry (10/05/17 02:10) Ondansetron Inj (Zofran Inj) (10/05/17 02:15) Sodium Chlor 0.9% 1000 Ml Inj (Ns 1000 M (10/05/17 02:15) Sodium Chlor 0.9% 1000 Ml Inj (Ns 1000 M (10/05/17 03:00) Senior Electrical Controls Engineer / Telemetry [email or web address] (10/05/17 03:18) ^ Insert Iv (10/05/17 03:18) Sodium Chlor 0.9% 1000 Ml Inj (Ns 1000 M (10/05/17 03:18) Dext 5%-Nacl 0.9% 1000 Ml Inj (D5w-Ns 10 (10/05/17 03:18) Insulin Human Regular Inj (Novolin R Inj (10/05/17 03:30) Insulin Regular (Iv Infusion) (Novolin R (10/05/17 03:30) Potassium Chlor 40 Meq Premix (Kcl 40 Me (10/05/17 03:30) Potassium Chlor 40 Meq Premix (Kcl 40 Me (10/05/17 03:30) Potassium Chlor 20 Meq Premix (Kcl 20 Me (10/05/17 03:30) Potassium Chlor 20 Meq Premix (Kcl 20 Me (10/05/17 03:30) Potassium Chlor 20 Meq Premix (Kcl 20 Me (10/05/17 03:30) Potassium Chlor 20 Meq Premix (Kcl 20 Me (10/05/17 03:30) Potassium Chlor 20 Meq Premix (Kcl 20 Me (10/05/17 03:30) Potassium Chlor 20 Meq Premix (Kcl 20 Me (10/05/17 03:30) Sodium Bicarbonate 8.4% Inj (Sodium Bica (10/05/17 03:30) Sodium Bicarbonate 8.4% Inj (Sodium Bica (10/05/17 03:30) Sodium Phosphate Inj (Sodium Phosphate I (10/05/17 03:30) Hemoglobin (Hgb) A1c (10/05/17 03:18) Basic Metabolic Panel (Bmp) (10/05/17 08:18) Basic Metabolic Panel (Bmp) (10/05/17 14:18) Magnesium (Mg) (10/05/17 08:18) Magnesium (Mg) (10/05/17 14:18) Phosphorus (Po4) (10/05/17 08:18) Phosphorus (Po4) (10/05/17 14:18) Beta Hydroxybutyrate (Acetone) (10/05/17 14:18) Admit Order (Ed Use Only) (10/05/17 03:35) Labs Laboratory Tests Test 10/05/17 02:00 10/05/17 02:14 10/05/17 02:55 White Blood Count 8.0 TH/MM3 Red Blood Count 4.63 MIL/MM3 Hemoglobin 13.6 GM/DL Hematocrit 41.6 % Mean Corpuscular Volume 89.8 FL Mean Corpuscular Hemoglobin 29.4 PG Mean Corpuscular Hemoglobin Concent 32.7 % Red Cell Distribution Width 13.8 % Platelet Count 370 TH/MM3 Mean Platelet Volume 8.2 FL Neutrophils (%) (Auto) 83.4 % Lymphocytes (%) (Auto) 12.6 % Monocytes (%) (Auto) 3.2 % Eosinophils (%) (Auto) 0.1 % Basophils (%) (Auto) 0.7 % Neutrophils # (Auto) 6.7 TH/MM3 Lymphocytes # (Auto) 1.0 TH/MM3 Monocytes # (Auto) 0.3 TH/MM3 Eosinophils # (Auto) 0.0 TH/MM3 Basophils # (Auto) 0.1 TH/MM3 CBC Comment DIFF FINAL Differential Comment Blood Urea Nitrogen 12 MG/DL Creatinine 1.17 MG/DL Random Glucose 825 MG/DL Total Protein 7.9 GM/DL Albumin 3.9 GM/DL Calcium Level 8.7 MG/DL Alkaline Phosphatase 158 U/L Aspartate Amino Transf (AST/SGOT) 140 U/L Alanine Aminotransferase (ALT/SGPT) 75 U/L Total Bilirubin 0.2 MG/DL Sodium Level 133 MEQ/L Potassium Level 4.4 MEQ/L Chloride Level 104 MEQ/L Carbon Dioxide Level 14.6 MEQ/L Anion Gap 14 MEQ/L Estimat Glomerular Filtration Rate 56 ML/MIN Thyroid Stimulating Hormone 3rd Gen 1.040 uIU/ML Salicylates Level LESS THAN 1.7 MG/DL Acetaminophen Level LESS THAN 2.0 MCG/ML Ethyl Alcohol Level 176 MG/DL Venous Blood pH 7.23 Urine Color COLORLESS Urine Turbidity CLEAR Urine pH 5.0 Urine Specific Athena 1.029 Urine Protein NEG mg/dL Urine Glucose (UA) 1000 mg/dL Urine Ketones 10 mg/dL Urine Occult Blood NEG Urine Nitrite NEG Urine Bilirubin NEG Urine Urobilinogen LESS THAN 2.0 MG/DL Urine Leukocyte Esterase NEG Urine RBC 1 /hpf Urine WBC 2 /hpf Urine Squamous Epithelial Cells <1 /hpf Urine Bacteria FEW /hpf Microscopic Urinalysis Comment CULT NOT INDICATED Lipase 102 U/L Urine Opiates Screen NEG Urine Barbiturates Screen NEG Urine Amphetamines Screen NEG Urine Benzodiazepines Screen NEG Urine Cocaine Screen NEG Urine Cannabinoids Screen NEG B-Hydroxybutyrate 0.63 MMOL/L MDM Medical Decision Making Medical Screen Exam Complete: Yes Emergency Medical Condition: Yes Medical Record Reviewed: Yes Interpretation(s) Last Impressions Chest X-Ray 10/05/17 0210 Signed Impressions: Service Date/Time: Thursday, October 05, 2017 02:23 - CONCLUSION: No acute cardiopulmonary abnormality is identified. The main pulmonary artery contour is mildly enlarged. Arben Martinez MD Differential Diagnosis Hyperosmolar hyperglycemia, versus DKA, versus hyperglycemia with medication noncompliance Narrative Course During the course of the patient's emergency department visit, the patient's history, examination, and differential diagnosis were reviewed with the patient. The patient was placed on a groundwater monitoring technician with oximetry and frequent blood pressure monitoring. The patient had IV access obtained and blood work sent for analysis. The patient's Accu-Chek was noted to be critically high. VBG was ordered The patient was initially provided normal saline 1 L IV fluid bolus, Zofran 4 mg IV. The patient's laboratory studies were reviewed and remarkable for white count of 8, hemoglobin 13.6, platelets 370 with 83.4 neutrophils, CMP is remarkable for sodium 133, CO2 14.6, creatinine 1.17, glucose 825, AST 140, ALT 75, alk phos 158, lipase 102, TSH 1.04, urinalysis shows 1000 glucose, ketones 10. The patient's VBG revealed a pH of 7.23. The patient was considered to be in DKA. The patient was given an insulin bolus of 8 units followed by an insulin drip. Alcohol level was 176, urine drug screen negative, acetaminophen less than 2, salicylate less than 1.7. The patient was administered another normal saline 1 L IV fluid bolus. Radiology studies were reviewed and remarkable for a chest x-ray that shows no acute cardiopulmonary disease. The patient's results were discussed with the patient, including the plan of care. I explained that further testing and/ or monitoring is indicated based on the patient's history, examination, and/ or laboratory findings. Therefore, I recommended admission for additional evaluation. The patient expressed understanding and was agreeable with this plan. The patient was admitted to the hospital in guarded condition and sent to a bed under the care of the chief of service service. Physician Communication Physician Communication The patient's case including history, pertinent physical examination findings, and laboratory studies were discussed with Dr. Morton. It was agreed that the patient would be admitted to the chief of service's service. Diagnosis Primary Impression: DKA, type 1 Qualified Codes: E10.10 - Type 1 diabetes mellitus with ketoacidosis without coma Admitting Information Admitting Physician Requests: Admit Madelyn Chowdhury MD Oct 05, 2017 02:15
[2017-10-05 02:16] LABS: AUTOMATED NEUTROPHIL # 6.7 TH/MM3 (1.8-7.7); BASOPHIL # 0.1 TH/MM3 (0-0.2); BASOPHIL % 0.7 % (0.0-2.0); EOSINOPHIL % 0.1 % (0.0-4.0); HEMATOCRIT 41.6 % (35.0-46.0); HEMOGLOBIN 13.6 GM/DL (11.6-15.3); LYMPH % 12.6 % (9.0-44.0); MEAN CELL VOLUME 89.8 FL (80.0-100.0); MEAN CORPUSCULAR HEMOGLOBIN 29.4 PG (27.0-34.0); MEAN CORPUSCULAR HGB CONC 32.7 % (32.0-36.0); MEAN PLATELET VOLUME 8.2 FL (7.0-11.0); MONO % 3.2 % (0.0-8.0); MONOCYTE # 0.3 TH/MM3 (0-0.9); NEUT % 83.4 % (16.0-70.0); PLATELET COUNT 370 TH/MM3 (150-450); RED BLOOD COUNT 4.63 MIL/MM3 (4.00-5.30); RED CELL DISTRIBUTION WIDTH 13.8 % (11.6-17.2)
[2017-10-05 02:33] LABS: ALBUMIN 3.9 GM/DL (3.4-5.0); ALT (GPT) 75 U/L (10-53); AST (GOT) 140 U/L (15-37); BICARBONATE 14.6 MEQ/L (21.0-32.0); BLOOD UREA NITROGEN 12 MG/DL (7-18); CALCIUM 8.7 MG/DL (8.5-10.1); CHLORIDE 104 MEQ/L (98-107); CREATININE 1.17 MG/DL (0.50-1.00); GLOMERULAR FILTRATION RATE 56 ML/MIN (>89); SODIUM (NA) 133 MEQ/L (136-145)
[2017-10-05 02:47] LABS: ALKALINE PHOSPHATASE 158 U/L (45-117); TOTAL BILIRUBIN ADULT 0.2 MG/DL (0.2-1.0); TOTAL PROTEIN 7.9 GM/DL (6.4-8.2)
[2017-10-05 02:48] LABS: ACETAMINOPHEN LESS THAN 2.0 MCG/ML (10.0-30.0)
[2017-10-05 02:50] LABS: GLUCOSE,RANDOM 825 MG/DL (74-106)
--- NOTE | 2017-10-05 02:59 | RADRPT ---
EXAM DATE/TIME: 10/05/2017 02:23 [facility] COMPARISON: CHEST SINGLE AP, September 07, 2016, 8:26. INDICATIONS : Short of breath. MEDICAL HISTORY : None. SURGICAL HISTORY : None. ENCOUNTER: Initial ACUITY: 1 day PAIN SCORE: 0/10 LOCATION: Bilateral chest FINDINGS: Portable AP view of the chest demonstrates a normal-sized cardiac silhouette. No effusion, consolidat ion, or pneumothorax is visualized. The bones and soft tissues demonstrate no acute abnormality. Ther e is a prominent main pulmonary artery contour. CONCLUSION: No acute cardiopulmonary abnormality is identified. The main pulmonary artery contour is mildly enlar ged. Arben Martinez MD on October 05, 2017 at 2:57 Board Certified Radiologist. This report was verified electronically.
[2017-10-05] MEDS ORDERED: DEXT 5%-NACL 0.9% 1000 ML INJ 1,000 ML IV SCH (03:18)
[2017-10-05] MEDS ORDERED: SODIUM CHLOR 0.9% 1000 ML INJ 1,000 ML IV SCH (03:18)
[2017-10-05] MEDS ORDERED: INSULIN REGULAR (IV INFUSION) 100 UNITS in SODIUM CHLORIDE 0.9% INJ 99 ML IV PRN (03:30)
[2017-10-05] MEDS ORDERED: INSULIN HUMAN REGULAR 1,000 UNITS/10 ML VIAL IV PUSH ONE (03:30)
[2017-10-05] MEDS ORDERED: POTASSIUM CHLOR 20 MEQ PREMIX 100 ML IV PRN ×5 (03:30)
[2017-10-05] MEDS ORDERED: SODIUM BICARBONATE 8.4% SOLN 50 MEQ/50 ML VIAL IV PUSH PRN ×2 (03:30)
[2017-10-05] MEDS ORDERED: SODIUM PHOSPHATE INJ 15 MMOL in SODIUM CHLORIDE 0.9% INJ 100 ML IV PRN (03:30)
[2017-10-05] MEDS ORDERED: POTASSIUM CHLOR 40 MEQ PREMIX 100 ML IV PRN ×2 (03:30)
[2017-10-05 03:43] LABS: BACTERIA, URINE FEW /hpf; BILIRUBIN, URINE NEG (NEG); BLOOD, URINE NEG (NEG); GLUCOSE,URINE 1000 mg/dL (NEG); KETONE, URINE 10 mg/dL (NEG); NITRITE,URINE NEG (NEG); SQUAMOUS EPITHELIAL CELL URINE <1 /hpf (0-5); URINE COLOR COLORLESS (YELLW/STRAW); URINE LEUKOCYTE ESTERASE NEG (NEG)
[2017-10-05] MEDS ORDERED: LORazepam 2 MG/ML VIAL IV PUSH ONE (04:00)
--- NOTE | 2017-10-05 04:12 | HHI.HP ---
HPI Service Critical Care Medicine Primary Care Physician Unknown Admission Diagnosis DKA Diagnosis: Travel History International Travel<30 Days: No Contact w/Intl Traveler <30 Da: No Traveled to Known Affected Are: No History of Present Illness 26-year-old female with past medical history of TBI, type 1 diabetes mellitus since age 14, seizure disorder, migraines presented to [facility] emergency department when her friend brought her due to agitation that occurred after drinking alcohol. Patient has history of TBI and expressed frustration regarding her recovery. During ED workup it was discovered that she was in DKA. She is on Lantus 35 units twice a day. She states she took her morning dose of Lantus but after drinking alcohol did not take her evening Lantus dose. She denies fevers or chills. Denies dysuria. Chest x-ray clear. Denies suicidal or homicidal ideations. She had apparent pseudoseizure in the emergency department and improved after Ativan 1 mg IV. 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 She states she does not want to remain in the hospital because she has a follow-up appointment with [facility] on Review of Systems Constitutional: DENIES: Fever Respiratory: DENIES: Sputum production Gastrointestinal: DENIES: Abdominal pain, Vomiting Neurologic: DENIES: Headache Past Family Social History Allergies: Coded Allergies: promethazine (Verified Allergy, Unknown, 10/05/17) Past Medical History Migraines TBI SVT Type 1 diabetes mellitus She sees a neurologist in [place]. She has been followed by [facility] for intermittent hemiparesis and questionable Jame's paralysis Past Surgical History Appendectomy [place] tooth extraction Reported Medications Reviewed medication reconciliation. 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 This resolved after Ativan 1 mg IV and she awoke and said "thank you" SKIN: Warm and dry. HEAD: Atraumatic. Normocephalic. EYES: Pupils equal and round, 4 mm and reactive. Gaze is conjugate without deviation.. No scleral icterus. No injection or drainage. ENT: No nasal bleeding or discharge. Mucous membranes pink and moist. NECK: Trachea midline. No JVD. No meningismus CARDIOVASCULAR: Regular rate and rhythm. No murmurs rubs or gallops. RESPIRATORY: No accessory muscle use. Clear to auscultation. Breath sounds equal bilaterally. GASTROINTESTINAL: Abdomen soft, non-tender, nondistended. Hepatic and splenic margins not palpable. MUSCULOSKELETAL: Extremities without clubbing, cyanosis, or edema. No obvious deformities. NEUROLOGICAL: Following the above-described episode reexamined neurologically. Awake and alert. No obvious cranial nerve deficits. Motor grossly within normal limits. Normal speech. Laboratory Laboratory Tests Test 10/05/17 02:00 10/05/17 02:14 10/05/17 02:55 White Blood Count 8.0 Red Blood Count 4.63 Hemoglobin 13.6 Hematocrit 41.6 Mean Corpuscular Volume 89.8 Mean Corpuscular Hemoglobin 29.4 Mean Corpuscular Hemoglobin Concent 32.7 Red Cell Distribution Width 13.8 Platelet Count 370 Mean Platelet Volume 8.2 Neutrophils (%) (Auto) 83.4 Lymphocytes (%) (Auto) 12.6 Monocytes (%) (Auto) 3.2 Eosinophils (%) (Auto) 0.1 Basophils (%) (Auto) 0.7 Neutrophils # (Auto) 6.7 Lymphocytes # (Auto) 1.0 Monocytes # (Auto) 0.3 Eosinophils # (Auto) 0.0 Basophils # (Auto) 0.1 CBC Comment DIFF FINAL Differential Comment Blood Urea Nitrogen 12 Creatinine 1.17 Random Glucose 825 Total Protein 7.9 Albumin 3.9 Calcium Level 8.7 Alkaline Phosphatase 158 Aspartate Amino Transf (AST/SGOT) 140 Alanine Aminotransferase (ALT/SGPT) 75 Total Bilirubin 0.2 Sodium Level 133 Potassium Level 4.4 Chloride Level 104 Carbon Dioxide Level 14.6 Anion Gap 14 Estimat Glomerular Filtration Rate 56 Thyroid Stimulating Hormone 3rd Gen 1.040 Salicylates Level LESS THAN 1.7 Acetaminophen Level LESS THAN 2.0 Ethyl Alcohol Level 176 Venous Blood pH 7.23 Urine Color COLORLESS Urine Turbidity CLEAR Urine pH 5.0 Urine Specific [place] 1.029 Urine Protein NEG Urine Glucose (UA) 1000 Urine Ketones 10 Urine Occult Blood NEG Urine Nitrite NEG Urine Bilirubin NEG Urine Urobilinogen LESS THAN 2.0 Urine Leukocyte Esterase NEG Urine RBC 1 Urine WBC 2 Urine Squamous Epithelial Cells <1 Urine Bacteria FEW Microscopic Urinalysis Comment CULT NOT INDICATED Lipase 102 Urine Opiates Screen NEG Urine Barbiturates Screen NEG Urine Amphetamines Screen NEG Urine Benzodiazepines Screen NEG Urine Cocaine Screen NEG Urine Cannabinoids Screen NEG B-Hydroxybutyrate 0.63 Result Diagram: 10/05/17 02010/05/17 0200 Caprini VTE Risk Assessment Caprini VTE Risk Assessment: Mod/High Risk (score >= 2) Caprini Risk Assessment Model Point Value = 1 Point Value = 2 Point Value = 3 Point Value = 5 Age 41-60 Minor surgery BMI > 25 kg/m2 Swollen legs Varicose veins or History of unexplained or recurrent spontaneous Oral contraceptives or hormone replacement Sepsis (< 1 month) Serious lung disease, including pneumonia (< 1 month) Abnormal pulmonary function Acute myocardial infarction Congestive heart failure (< 1 month) History of inflammatory bowel disease Medical patient at bed rest Age 61-74 Arthroscopic surgery Major open surgery (> 45 min) Laparoscopic surgery (> 45 min) Malignancy Confined to bed (> 72 hours) Immobilizing plaster cast Central venous access Age >= 75 History of VTE Family history of VTE Factor V Leiden Prothrombin [id number] Lupus anticoagulant Anticardiolipin antibodies Elevated serum homocysteine Heparin-induced thrombocytopenia Other congenital or acquired thrombophilia Stroke (< 1 month) Elective arthroplasty Hip, pelvis, or leg fracture Acute spinal cord injury (< 1 month) Prophylaxis Regimen Total Risk Factor Score Risk Level Prophylaxis Regimen 0-1 Low Early ambulation 2 Moderate Order ONE of the following: *Sequential Compression Device (SCD) *Heparin 5000 units SQ BID 3-4 Higher Order ONE of the following medications: *Heparin 5000 units SQ TID *Enoxaparin/Lovenox 40 mg SQ daily (WT < 150 kg, CrCl > 30 mL/min) *Enoxaparin/Lovenox 30 mg SQ daily (WT < 150 kg, CrCl > 10-29 mL/min) *Enoxaparin/Lovenox 30 mg SQ BID (WT < 150 kg, CrCl > 30 mL/min) AND/OR *Sequential Compression Device (SCD) 5 or more Highest Order ONE of the following medications: *Heparin 5000 units SQ TID (Preferred with Epidurals) *Enoxaparin/Lovenox 40 mg SQ daily (WT < 150 kg, CrCl > 30 mL/min) *Enoxaparin/Lovenox 30 mg SQ daily (WT < 150 kg, CrCl > 10-29 mL/min) *Enoxaparin/Lovenox 30 mg SQ BID (WT < 150 kg, CrCl > 30 mL/min) AND *Sequential Compression Device (SCD) Assessment and Plan Assessment and Plan NEURO: History of TBI Migraines Seizure disorder Patient states she missed her dose of Vimpat evening of 10/04. . We'll give Vimpat 200 mg by mouth twice a day Topamax 200 mg by mouth daily at bedtime Amitriptyline 50 g by mouth daily RESP: On room air CV: History of SVT Monitor telemetry GI: 2000-calorie ADA diet FEN/RENAL: Monitor intake and output. Monitor electrolytes every 6 hours with replacement per DKA protocol. ID: No evidence of infection HEME: No acute hematologic issues ENDO: Type 1 diabetes mellitus DKA Insulin drip per DKA protocol and transition to Lantus 35 units subcutaneous twice a day with medium dose insulin sliding scale. PROPH: Famotidine for stress ulcer prophylaxis. SCDs/Lovenox 40 mg subcutaneous daily for DVT prophylaxis ACCESS: For full IV providing adequate access Full code Level III H&P Millie Morton MD Oct 05, 2017 04:12
[2017-10-05] MEDS: POTASSIUM CHLOR 20 MEQ PREMIX 100 ML IV PRN ×2 (04:18→06:11)
[2017-10-05] MEDS: LACOSAMIDE 100 MG TAB PO SCH ×3 (05:28→21:35)
--- NOTE | 2017-10-05 05:50 | RADRPT ---
EXAM DATE/TIME: 10/05/2017 04:31 [place] COMPARISON: No previous studies available for comparison. INDICATIONS : Increased lab values. MEDICAL HISTORY : Syncope. Diabetes. SURGICAL HISTORY : Cholecystectomy. [place] teeth removed. ENCOUNTER: Initial ACUITY: 1 day PAIN SCORE: 0/10 LOCATION: Bilateral upper quadrant MEASUREMENTS: LIVER: 17.0 cm length COMMON DUCT: 5 mm RIGHT KIDNEY: 10.0 x 4.7 x 5.0 cm SPLEEN: 10.4 cm length FINDINGS: LIVER: Normal echotexture without focal lesion. There appears to be mild intrahepatic bile duct dilatation. COMMON DUCT: No intraluminal mass or stone visualized. GALLBLADDER: Surgically absent. PANCREAS: The visualized portions are within normal limits. RIGHT KIDNEY: No hydronephrosis, stone or mass. SPLEEN: No focal lesion. CONCLUSION: 1. Mild intrahepatic bile duct dilatation with common bile duct appears normal in size. The patient i s post cholecystectomy. Therefore, some of these changes could be chronic. Consider correlating with prior imaging studies to assess for change or consider CT with IV contrast for further evaluation. 2. Remainder of the examination is within normal limits. Arben Martinez MD on October 05, 2017 at 5:46 Board Certified Radiologist. This report was verified electronically.
[2017-10-05] MEDS ORDERED: PROPOFOL 500 MG/50 ML INJ 100 ML ONE (06:02)
[2017-10-05] MEDS ORDERED: MISCELLANEOUS NURSING INFORMATION XX SCH (06:15)
[2017-10-05] MEDS ORDERED: BISACODYL 10 MG SUPP RECTAL PRN (06:15)
[2017-10-05] MEDS ORDERED: MAGNESIUM HYDROXIDE SUSP 30 ML CUP PO PRN (06:15)
[2017-10-05] MEDS ORDERED: ACETAMINOPHEN 325 MG TAB PO PRN (06:15)
[2017-10-05] MEDS ORDERED: CHLORHEXIDINE GLUCONATE 2 % 1 PACK (2 CLOTHS) TOP PRN (06:15)
[2017-10-05] MEDS ORDERED: SENNOSIDES 8.6 MG TAB PO PRN (06:15)
[2017-10-05] MEDS ORDERED: SODIUM CHLORIDE 0.9% FLUSH 10 ML FLUSH IV FLUSH PRN (06:15)
[2017-10-05] MEDS ORDERED: RESP: ALBUTEROL 2.5 MG/3 ML NEB (PRN) INH (06:15)
[2017-10-05] MEDS ORDERED: LACTULOSE SYRUP 20 GM/30 ML CUP PO PRN (06:15)
[2017-10-05] MEDS ORDERED: ONDANSETRON HCL 4 MG/2 ML VIAL IV PUSH PRN (06:15)
[2017-10-05] MEDS: ENOXAPARIN SODIUM 40 MG/0.4 ML SYRINGE SQ SCH (07:53)
[2017-10-05] MEDS: FAMOTIDINE 20 MG/2 ML VIAL IV PUSH SCH ×2 (07:53→21:34)
[2017-10-05] MEDS: SODIUM CHLORIDE 0.9% FLUSH 10 ML FLUSH IV FLUSH SCH ×2 (07:53→21:34)
[2017-10-05] MEDS: DOCUSATE SODIUM 50 MG/SENNA 8.6 MG TAB PO SCH ×2 (07:54→21:00)
[2017-10-05] MEDS: FAMOTIDINE 20 MG TAB PO SCH ×2 (07:54→22:07)
[2017-10-05] MEDS ORDERED: LACOSAMIDE INJ 200 MG in SODIUM CHLORIDE 0.9% INJ 100 ML IV SCH (09:00)
[2017-10-05] MEDS ORDERED: GLUCAGON 1 MG/ML VIAL OTHER PRN (12:15)
[2017-10-05] MEDS ORDERED: DC previous DKA orders (HMC 1917) ONE (12:15)
--- NOTE | 2017-10-05 13:35 | EKG ---
Date Performed: 10/05/2017 Time Performed: 05:45:55 PTAGE: 26 years EKG: SINUS TACHYCARDIA ABNORMAL RHYTHM ECG NO PREVIOUS TRACING DOCTOR: Brenden Carrillo Interpretating Date/Time 10/05/2017 13:33:31
[2017-10-05] MEDS: INSULIN DETEMIR 100 UNITS/ML VIAL SQ SCH ×2 (13:36→21:35)
[2017-10-05 13:59] LABS: BICARBONATE 19.4 MEQ/L (21.0-32.0); CALCIUM 7.9 MG/DL (8.5-10.1); CREATININE 0.57 MG/DL (0.50-1.00); PHOSPHORUS 1.9 MG/DL (2.5-4.9)
[2017-10-05] MEDS ORDERED: POTASSIUM BICARBONATE 25 MEQ EFFERVESCENT TAB PO ONE (14:45)
[2017-10-05] MEDS ORDERED: POTASSIUM CHLORIDE 25 MEQ EFFERVESCENT TAB PO ONE (15:00)
[2017-10-05] MEDS ORDERED: DC Insulin drip 2 hrs post basal insulin dose ONE (15:30)
[2017-10-05] MEDS: INSULIN ASPART SUPPLEMENTAL SCALE SQ SCH ×2 (16:12→21:00)
[2017-10-05 18:03] LABS: BICARBONATE 18.1 MEQ/L (21.0-32.0); BLOOD UREA NITROGEN 8 MG/DL (7-18); CALCIUM 7.7 MG/DL (8.5-10.1); CHLORIDE 114 MEQ/L (98-107); CREATININE 0.57 MG/DL (0.50-1.00); GLOMERULAR FILTRATION RATE 129 ML/MIN (>89); GLUCOSE,RANDOM 212 MG/DL (74-106); PHOSPHORUS 2.7 MG/DL (2.5-4.9); SODIUM (NA) 142 MEQ/L (136-145)
[2017-10-05] MEDS ORDERED: TOPIRAMATE 200 MG TAB PO SCH (21:00)
[2017-10-05] MEDS ORDERED: AMITRIPTYLINE HCL 50 MG TAB PO SCH (21:00)
[2017-10-05] MEDS ORDERED: TOPIRAMATE 25 MG TAB PO SCH (21:00)
[2017-10-05 22:14] LABS: HEMOGLOBIN A1C 8.4 % (4.3-6.0)
[2017-10-06] VITALS: BP 120/67; PULSE 81; RESP 18; TEMP 98.4; O2SAT 96
[2017-10-06] MEDS: DEXTROSE 50% IN WATER 50 ML VIAL(D50) IV PUSH PRN ×2 (01:15→05:09)
[2017-10-06 02:00] VITALS: PULSE 80
[2017-10-06 04:00] VITALS: BP 115/64; PULSE 74; RESP 17; TEMP 97; O2SAT 98
[2017-10-06] MEDS ORDERED: CHLORHEXIDINE GLUCONATE 2 % 1 PACK (2 CLOTHS) TOP SCH (04:00)
[2017-10-06 06:00] VITALS: PULSE 74
[2017-10-06] MEDS: ENOXAPARIN SODIUM 40 MG/0.4 ML SYRINGE SQ SCH (07:33)
[2017-10-06] MEDS: SODIUM CHLORIDE 0.9% FLUSH 10 ML FLUSH IV FLUSH SCH (07:34)
[2017-10-06] MEDS: DOCUSATE SODIUM 50 MG/SENNA 8.6 MG TAB PO SCH (07:35)
[2017-10-06] MEDS: LACOSAMIDE 100 MG TAB PO SCH (07:35)
[2017-10-06] MEDS: FAMOTIDINE 20 MG TAB PO SCH (07:35)
[2017-10-06] MEDS: FAMOTIDINE 20 MG/2 ML VIAL IV PUSH SCH (07:35)
[2017-10-06] MEDS: INSULIN DETEMIR 100 UNITS/ML VIAL SQ SCH (07:36)
[2017-10-06] MEDS: INSULIN ASPART SUPPLEMENTAL SCALE SQ SCH ×2 (07:36→12:00)
[2017-10-06 08:00] VITALS: BP 115/74; PULSE 85; RESP 23; TEMP 98.4; O2SAT 97
[2017-10-06 10:00] LABS: BICARBONATE 19.6 MEQ/L (21.0-32.0); CREATININE 0.56 MG/DL (0.50-1.00)
[2017-10-06] MEDS ORDERED: POTASSIUM CHLORIDE 10 MEQ CONTROLLED RELEASE TAB PO ONE (10:30)
[2017-10-06 11:31] VITALS: BP 129/78; PULSE 99; RESP 18; TEMP 97.7; O2SAT 98
--- NOTE | 2017-10-06 13:24 | HHI.PR ---
Subjective Remarks Patient seen this morning. Says. She reports that this DKA exacerbation is secondary to binge drinking. She denies wanting to harm herself. Says she will stay away from alcohol altogether. Has appointments with neurologist on Thursday and Objective Vital Signs Date Time Temp Pulse Resp B/P (MAP) Pulse Ox O2 Delivery O2 Flow Rate FiO2 10/06/17 11:31 97.7 99 18 129/78 (95) 98 10/06/17 08:00 85 10/06/17 08:00 98.4 85 23 115/74 (88) 97 10/06/17 06:00 74 10/06/17 04:00 97.0 74 17 115/64 (81) 98 10/06/17 04:00 74 10/06/17 02:00 80 10/06/17 00:00 98.4 81 18 120/67 (84) 96 10/06/17 00:00 81 10/05/17 22:00 91 10/05/17 20:00 87 10/05/17 20:00 99.1 87 17 121/69 (86) 97 10/05/17 18:00 99 10/05/17 16:00 98.7 122 20 114/63 (80) 96 10/05/17 16:00 122 10/05/17 14:00 100 I/O 10/05/17 10/05/17 10/05/17 10/06/17 10/06/17 10/06/17 07:00 15:00 23:00 07:00 15:00 23:00 Intake Total 960 ml 750 ml 250 ml Output Total 1200 ml 800 ml Balance -240 ml -50 ml 250 ml Intake Oral 960 ml 750 ml IV Total 250 ml Output Urine Total 1200 ml 800 ml Stool Total 0 ml Result Diagram: 10/05/17 0200 10/06/17 0912 Objective Remarks GENERAL: Patient sitting up in chair bedside. Walking in room. Appears comfortable. Alert and oriented 4. No suicidal ideation. SKIN: Warm and dry. HEAD: Normocephalic. EYES: No scleral icterus. No injection or drainage. NECK: Supple, trachea midline. No JVD CARDIOVASCULAR: Regular rate and rhythm without murmurs, gallops, or rubs. RESPIRATORY: Breath sounds equal bilaterally. No accessory muscle use. GASTROINTESTINAL: Abdomen soft, non-tender, nondistended. MUSCULOSKELETAL: No cyanosis, or edema. BACK: Nontender without obvious deformity. No CVA tenderness. A/P Assessment and Plan //Type 1 diabetes mellitus //DKA Insulin drip per DKA protocol and transition to Lantus 35 units subcutaneous twice a day with medium dose insulin sliding scale. = 3/. No anion gap. Hyperglycemia has resolved. Episode likely secondary to alcoholic ketoacidosis, nausea and vomiting from alcohol, with associated medication noncompliance. Patient denies any suicidal ideation. Exhibits good understanding of her situation. Agrees to stay away from alcohol. Continue home medications. //Hypokalemia. 3.3. Replace. //History of TBI //Migraines //Seizure disorder Patient states she missed her dose of Vimpat evening of 10/04. . We'll give Vimpat 200 mg by mouth twice a day Topamax 200 mg by mouth daily at bedtime Amitriptyline 50 g by mouth daily Continue home medications. //History of SVT Monitor telemetry PROPH: Famotidine for stress ulcer prophylaxis. SCDs/Lovenox 40 mg subcutaneous daily for DVT prophylaxis ACCESS: For full IV providing adequate access Discharge Planning Discharge home Jovani Lee MD Oct 06, 2017 13:24
--- NOTE | 2017-10-06 13:32 | HHI.DS ---
Discharge Summary Admission Date Oct 05, 2017 at 03:37 Discharge Date: Oct 06, 2017 Admitting Diagnosis DKA (1) Type 1 diabetes mellitus ICD Code: E10.9 - Type 1 diabetes mellitus without complications Status: Acute (2) DKA, type 1 ICD Code: E10.10 - Type 1 diabetes mellitus with ketoacidosis without coma Status: Acute (3) Hyperglycemia ICD Code: R73.9 - Hyperglycemia, unspecified Status: Acute Procedures No invasive procedures Brief History - From Admission 26-year-old female with past medical history of TBI, type 1 diabetes mellitus since age 14, seizure disorder, migraines presented to [facility] emergency department when her friend brought her due to agitation that occurred after drinking alcohol. Patient has history of TBI and expressed frustration regarding her recovery. During ED workup it was discovered that she was in DKA. She is on Lantus 35 units twice a day. She states she took her morning dose of Lantus but after drinking alcohol did not take her evening Lantus dose. She denies fevers or chills. Denies dysuria. Chest x-ray clear. Denies suicidal or homicidal ideations. She had apparent pseudoseizure in the emergency department and improved after Ativan 1 mg IV. 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 She states she does not want to remain in the hospital because she has a follow-up appointment with [facility] on CBC/BMP: 10/05/17 0200 10/06/17 0912 Significant Findings Laboratory Tests Test 10/05/17 02:00 10/05/17 02:14 10/05/17 02:55 10/05/17 06:55 Neutrophils (%) (Auto) 83.4 % (16.0-70.0) Creatinine 1.17 MG/DL (0.50-1.00) Random Glucose 825 MG/DL (74-106) Alkaline Phosphatase 158 U/L (45-117) Aspartate Amino Transf (AST/SGOT) 140 U/L (15-37) Alanine Aminotransferase (ALT/SGPT) 75 U/L (10-53) Sodium Level 133 MEQ/L (136-145) Carbon Dioxide Level 14.6 MEQ/L (21.0-32.0) Estimat Glomerular Filtration Rate 56 ML/MIN (>89) Salicylates Level LESS THAN 1.7 MG/DL Acetaminophen Level LESS THAN 2.0 MCG/ML Ethyl Alcohol Level 176 MG/DL (0-5) Venous Blood pH 7.23 (7.360-7.400) Urine Glucose (UA) 1000 mg/dL (NEG) Urine Ketones 10 mg/dL (NEG) Urine Bacteria FEW /hpf (NONE) B-Hydroxybutyrate 0.63 MMOL/L (0.00-0.39) Test 10/05/17 13:10 10/05/17 13:18 10/05/17 16:43 10/06/17 09:12 Lipase 62 U/L (73-393) Random Glucose 192 MG/DL (74-106) 212 MG/DL (74-106) 108 MG/DL (74-106) Calcium Level 7.9 MG/DL (8.5-10.1) 7.7 MG/DL (8.5-10.1) 8.0 MG/DL (8.5-10.1) Phosphorus Level 1.9 MG/DL (2.5-4.9) Potassium Level 3.3 MEQ/L (3.5-5.1) 3.3 MEQ/L (3.5-5.1) Chloride Level 114 MEQ/L (98-107) 114 MEQ/L (98-107) 112 MEQ/L (98-107) Carbon Dioxide Level 19.4 MEQ/L (21.0-32.0) 18.1 MEQ/L (21.0-32.0) 19.6 MEQ/L (21.0-32.0) Hemoglobin A1c 8.4 % (4.3-6.0) B-Hydroxybutyrate 2.70 MMOL/L (0.00-0.39) Imaging Last Impressions Chest X-Ray 10/05/17 0210 Signed Impressions: Service Date/Time: Thursday, October 05, 2017 02:23 - CONCLUSION: No acute cardiopulmonary abnormality is identified. The main pulmonary artery contour is mildly enlarged. Arben Martinez MD Liver Ultrasound 10/05/17 0000 Signed Impressions: Service Date/Time: Thursday, October 05, 2017 04:31 - CONCLUSION: 1. Mild intrahepatic bile duct dilatation with common bile duct appears normal in size. The patient is post cholecystectomy. Therefore, some of these changes could be chronic. Consider correlating with prior imaging studies to assess for change or consider CT with IV contrast for further evaluation. 2. Remainder of the examination is within normal limits. Arben Martinez MD Hospital Course Patient is admitted with nausea and vomiting secondary to alcohol intoxication, glucose in the 800s having missed insulin. Bicarb of 14, pH of 7.2, gap of 14 on admission, positive beta hydroxybutyrate at 2.7. No signs of infection. LFTs mildly elevated, with ultrasound showing mild intrahepatic bile duct dilation status post cholecystectomy. Patient without any abdominal pain or signs of liver pathology. Patient denies any suicidal ideation. Agrees to completely discontinue any alcohol use. She will go back on home medication regimen. Follow-up with primary care, neurology as outpatient. For problem-based summary from most recent progress note, please see below. //Type 1 diabetes mellitus //DKA Insulin drip per DKA protocol and transition to Lantus 35 units subcutaneous twice a day with medium dose insulin sliding scale. = 3/6. No anion gap. Hyperglycemia has resolved. Episode likely secondary to alcoholic ketoacidosis, nausea and vomiting from alcohol, with associated medication noncompliance. Patient denies any suicidal ideation. Exhibits good understanding of her situation. Agrees to stay away from alcohol. Continue home medications. //Hypokalemia. 3.3. Replace. //History of TBI //Migraines //Seizure disorder Patient states she missed her dose of Vimpat evening of 10/04. . We'll give Vimpat 200 mg by mouth twice a day Topamax 200 mg by mouth daily at bedtime Amitriptyline 50 g by mouth daily Continue home medications. //History of SVT Monitor telemetry //Elevation in LFTs on admission likely secondary to alcohol intoxication. Imaging is nonspecific with primary care as outpatient for repeat labs. PROPH: Famotidine for stress ulcer prophylaxis. SCDs/Lovenox 40 mg subcutaneous daily for DVT prophylaxis ACCESS: For full IV providing adequate access Discharge Planning Discharge home Pt Condition on Discharge: Good Discharge Disposition: Discharge Home Discharge Time: > 30 minutes Discharge Instructions DIET: Follow Instructions for: Diabetic Diet Activities you can perform: Regular-No Restrictions Follow up Referrals: PCP Follow-up - 1 Week Continued Medications: Amitriptyline (Amitriptyline) 25 Mg Tab 25 MG PO HS, TAB Insulin Aspart Inj (Novolog Inj) 1,000 Unit/10 Ml Vial 0 SQ DIRECTED for Blood Sugar Management, #10 ML 0 Refills Sliding Scale as directed. Insulin Glargine Inj (Lantus Inj) 1,000 Unit/10 Ml Vial 35 UNITS SQ BID, VIAL 0 Refills Lacosamide (Vimpat) 200 Mg Tab 200 MG PO BID for Control Seizures, #60 TAB 0 Refills Jovani Lee MD Oct 06, 2017 13:32
[2017-10-06 14:28] LABS: ALBUMIN 3.1 GM/DL (3.4-5.0); DIRECT BILIRUBIN ADULT 0.1 MG/DL (0.0-0.2)
[2017-10-06 14:37] LABS: INDIRECT BILIRUBIN 0.2 MG/DL (0.0-0.8); TOTAL BILIRUBIN ADULT 0.3 MG/DL (0.2-1.0); TOTAL PROTEIN 6.6 GM/DL (6.4-8.2)
== END 2017-10-06 16:36 | disposition home or self-care (01) | DRG 639 ==
LOC: NEPC 00:37 → NEDA 03:37 → HIMW 06:50 → N06A 10-06 09:39
PROVIDERS: ADMIT Internal Medicine; ATTEND Internal Medicine
DX: E10.10 Type 1 diabetes mellitus with ketoacidosis without coma (principal); G40.909 Epilepsy, unspecified, not intractable, without status epilepticus; F10.129 Alcohol abuse with intoxication, unspecified; Y90.6 Blood alcohol level of 120-199 mg/100 ml; G43.909 Migraine, unspecified, not intractable, without status migrainosus; Z79.4 Long term (current) use of insulin
CPT/HCPCS: 71045; 76705; 80048; 80053; 80076; 80307; 81001; 82010; 82800; 82948; 83036; 83690; 83735; 84100; 84443; 84703; 85025; 87641; 93005; 96361; 96374; J1650; J1815; J1817; J2060; J2405; J3480; J7030; J7042; J7050